=== PATIENT | female | born 1935 | race Caucasian/White ===

== ENCOUNTER → 2016-11-11 | Outpatient (CLI) | payer MEDICARE, BC ==
[2016-11-11 11:28] LABS: ANION GAP 12 (5-19); BLOOD UREA NITROGEN 40 mg/dL (7-20); CALCIUM 9.1 mg/dL (8.4-10.2); CARBON DIOXIDE 24 mmol/L (22-30); CHLORIDE 98 mmol/L (98-107); CREATININE RESULT 1.57 mg/dL (0.52-1.25); GLUCOSE 170 mg/dL (75-110); POTASSIUM 3.5 mmol/L (3.6-5.0); SODIUM 134.1 mmol/L (137-145)
== END ==
LOC: OD 10:03
PROVIDERS: ATTEND Internal Medicine Cardiovascular Disease
DX: G45.9 Transient cerebral ischemic attack, unspecified (principal)
CPT/HCPCS: 36415; 80048; 83880

== ENCOUNTER → 2017-01-18 | Outpatient (CLI) | payer MEDICARE, BC | LOC: OD 14:59 | DX: Z12.4 Encounter for screening for malignant neoplasm of cervix (principal) | CPT/HCPCS: 88142 ==

== ENCOUNTER → 2017-04-05 | Outpatient (CLI) | payer MEDICARE, BC ==
--- NOTE | 2017-04-05 14:39 | RADIOLOGY REPORT (SQ) ---
EXAM DESCRIPTION: U/S RETROPERITON (RENAL/AORTA) COMPLETED DATE/TIME: 04/05/2017 1:26 pm REASON FOR STUDY: RENAL AND PERINEPHRIC ABSCESS N15.1 RENAL AND PERINEPHRIC ABSCESS COMPARISON: None available. TECHNIQUE: Dynamic and static grayscale images acquired of the kidneys and bladder and recorded on P ACS. Additional selected color Doppler and spectral images recorded. LIMITATIONS: None. FINDINGS: RIGHT KIDNEY: Normal size, 10.5 cm. Normal echogenicity. No solid or suspicious masses. No hydronephrosis. No calcifications. LEFT KIDNEY: Normal size, 10.2 cm. Normal echogenicity. There appears to be mild cortical thinning. No solid or suspicious masses. No hydronephrosis. No calcifications. BLADDER: No masses. OTHER FINDINGS: No other significant finding. IMPRESSION: There appears to be mild cortical thinning in the left kidney. There is no evidence of a perinephric abscess. TECHNICAL DOCUMENTATION: JOB ID: [id number] [email or web address]- All Rights Reserved
== END ==
LOC: RAD 12:50
PROVIDERS: ATTEND Urology
DX: N15.1 Renal and perinephric abscess (principal)
CPT/HCPCS: 76770

== ENCOUNTER 2017-10-15 10:20 | Inpatient (IN) | payer MEDICARE, BC ==
--- NOTE | 2017-10-15 10:56 | RADIOLOGY REPORT (SQ) ---
EXAM DESCRIPTION: CT ABD/PELVIS NO ORAL OR IV COMPLETED DATE/TIME: 10/15/2017 10:43 am REASON FOR STUDY: right sided pain to the leg COMPARISON: None. TECHNIQUE: CT scan of the abdomen and pelvis performed without intravenous or oral contrast. Images reviewed with lung, soft tissue, and bone windows. Reconstructed coronal and sagittal MPR images revi ewed. All images stored on PACS. All CT scanners at this facility use dose modulation, iterative reconstruction, and/or weight based d osing when appropriate to reduce radiation dose to as low as reasonably achievable (ALARA). [facility]: Dose Right [facility]: CareDose [facility]: Dose Right [facility]: Teradose 4D [facility]: [employer]ift RADIATION DOSE: CT Rad equipment meets quality standard of care and radiation dose reduction techniq ues were employed. CTDIvol: 5.6 mGy. DLP: 291 mGy-cm.mGy. LIMITATIONS: None. FINDINGS: LOWER CHEST: No significant findings. No nodules or infiltrates. NON-CONTRASTED LIVER, SPLEEN, ADRENALS: Evaluation limited by lack of IV contrast. No identified sign ificant masses. PANCREAS: No masses. No peripancreatic inflammatory changes. GALLBLADDER: No identified stones by CT criteria. No inflammatory changes to suggest cholecystitis. RIGHT KIDNEY AND URETER: No suspicious masses. Assessment limited by lack of IV contrast. No signif icant calcifications. No hydronephrosis or hydroureter. LEFT KIDNEY AND URETER: No suspicious masses. Assessment limited by lack of IV contrast. No signifi cant calcifications. No hydronephrosis or hydroureter. AORTA AND RETROPERITONEUM: Vascular calcifications. No aneurysm. No retroperitoneal masses or adenop athy. BOWEL AND PERITONEAL CAVITY: Expected surgical change related to partial resection of the ascending c olon. Diverticulosis. No obvious masses or inflammatory changes. No free fluid. APPENDIX: Presumed to be surgically absent. PELVIS, BLADDER, AND ABDOMINAL WALL:Small fat containing supraumbilical and periumbilical hernias. N o abnormal masses. No free fluid. Bladder normal. BONES: Moderately displaced right subcapital femoral neck fracture. Mild to moderate chronic noe monet deformity of the T11 vertebral body. Degenerative change of the visualized spine most notable a t L5-S1 where there is grade 1 anterolisthesis in the setting of chronic bilateral pars defects. No additional fractures. OTHER: No other significant finding. IMPRESSION: MODERATELY DISPLACED RIGHT FEMORAL NECK FRACTURE. NO ACUTE FINDINGS IDENTIFIED WITHIN THE ABDOMEN OR PELVIS. ADDITIONAL CHRONIC CHANGES ABOVE. COMMENT: Quality ID # [id number]: Final reports with documentation of one or more dose reduction techniques (e.g., Automated exposure control, adjustment of the mA and/or kV according to patient size, use of iterative reconstruction technique) TECHNICAL DOCUMENTATION: JOB ID: [id number] [employer]- All Rights Reserved
[2017-10-15] MEDS ORDERED: HYDROCODONE/ACETAMINOPHEN 5-325 MG TABLET PO ONE (11:00)
--- NOTE | 2017-10-15 11:23 | ER Document Report ---
ED General - General Chief Complaint: Leg Pain Stated Complaint: RIGHT LEG PAIN Time Seen by Provider: 10/15/17 10:31 Mode of Arrival: Medic Information source: Patient, Relative Notes: 82-year-old female history of chronic kidney disease resents with complaints of right lower extremity pain and groin pain. Patient notes pain has been ongoing for 1 week, she denies any trauma denies any weakness or numbness admits to inability to ambulate today TRAVEL OUTSIDE OF THE [place] IN LAST 30 DAYS: No - HPI Onset: Last week Onset/Duration: Worse Quality of pain: Sharp Severity: Moderate Pain Level: 4 Associated symptoms: Body/muscle aches Exacerbated by: Movement, Walking Relieved by: Denies Similar symptoms previously: No Recently seen / treated by doctor: No - Related Data Allergies/Adverse Reactions: cephalexin monohydrate [From Keflex] Allergy (Intermediate, Verified 10/15/17 10 :38) Swelling of hands and/or feet codeine [Codeine] Allergy (Intermediate, Verified 10/15/17 10:38) VOMITING Penicillins Allergy (Intermediate, Verified 10/15/17 10:38) Swelling of hands and/or feet Home Medications: Current Home Medications Amlodipine Besylate 5 mg PO DAILY 10/15/17 [History] Cholecalciferol (Vitamin D3) [Vitamin D3 2000 unit Tablet] 2,000 unit PO DAILY 10/15/17 [History] Cyclosporine 0.05% Oph Emulsio [Restasis 0.05% Opthalmic Droperette] 1 drop OU BID 10/15/17 [History] Diphenoxylate HCl/Atropine [Diphenoxylate-Atrop 2.5-0.025] 2.5 mg PO Q6H PRN 03/27 [History] Furosemide [Lasix 40 mg Tablet] 40 mg PO BID 10/15/17 [History] Latanoprost [Xalatan 0.005% Oph Soln 2.5 ml] 1 drop OU QHS 10/15/17 [History] Levothyroxine Sodium [Synthroid 0.075 mg Tablet] 0.075 mg PO DAILY 10/15/17 [ History] Metoprolol Tartrate 25 mg PO BID 10/15/17 [History] Mycophenolate Mofetil 250 mg PO BID 10/15/17 [History] Omeprazole 20 mg PO QHS 10/15/17 [History] Potassium Chloride 10 meq PO BID 10/15/17 [History] Prednisone 5 mg PO DAILY 10/15/17 [History] Simvastatin 20 mg PO QHS 10/15/17 [History] Tamsulosin HCl 0.4 mg PO QHS 10/15/17 [History] Past Medical History - Social History Smoking Status: Never Smoker Cigarette use (# per day): No Chew tobacco use (# tins/day): No Smoking Education Provided: No Frequency of alcohol use: None Drug Abuse: None Family History: Reviewed & Not Pertinent Patient has suicidal ideation: No Patient has homicidal ideation: No - Past Medical History Cardiac Medical History: Reports: Hx Coronary Artery Disease - high chol , Hx Hypercholesterolemia, Hx Hypertension Pulmonary Medical History: Reports: Hx Bronchitis Neurological Medical History: Denies: Hx Seizures Endocrine Medical History: Reports: Hx Hypothyroidism Renal/ Medical History: Denies: Hx Peritoneal Dialysis GI Medical History: Reports: Hx Gastroesophageal Reflux Disease Musculoskeltal Medical History: Reports Hx Arthritis Past Surgical History: Denies: Hx Hysterectomy - Immunizations Hx Diphtheria, Pertussis, Tetanus Vaccination: Yes Review of Systems - Review of Systems Notes: REVIEW OF SYSTEMS: CONSTITUTIONAL : Denies fever, chills, or sweats. Denies recent illness. EENT: Denies eye, ear, throat, or mouth pain or symptoms. Denies nasal or sinus congestion or discharge. Denies throat, tongue, or mouth swelling or difficulty swallowing. CARDIOVASCULAR: Denies chest pain. Denies palpitations or racing or irregular heart beat. Denies ankle edema. RESPIRATORY: Denies cough, cold, or chest congestion. Denies shortness of breath, difficulty breathing, or wheezing. GASTROINTESTINAL: Denies abdominal pain or distention. Denies nausea, vomiting , or diarrhea. Denies blood in vomitus, stools, or per rectum. Denies black, tarry stools. Denies constipation. GENITOURINARY: Denies difficulty urinating, painful urination, burning, frequency, blood in urine, or discharge. FEMALE GENITOURINARY: Denies vaginal bleeding, heavy or abnormal periods, irregular periods. Denies vaginal discharge or odor. MUSCULOSKELETAL: Right leg pain. SKIN: Denies rash, lesions or sores. HEMATOLOGIC : Denies easy bruising or bleeding. LYMPHATIC: Denies swollen, enlarged glands. NEUROLOGICAL: Denies confusion or altered mental status. Denies passing out or loss of consciousness. Denies dizziness or lightheadedness. Denies headache. Denies weakness or paralysis or loss of use of either side. Denies problems with gait or speech. Denies sensory loss, numbness, or tingling. Denies seizures. PSYCHIATRIC: Denies anxiety or stress. Denies depression, suicidal ideation, or homicidal ideation. ALL OTHER SYSTEMS REVIEWED AND NEGATIVE. PHYSICAL EXAMINATION: GENERAL: Well-appearing, well-nourished and in no acute distress. HEAD: Atraumatic, normocephalic. EYES: Pupils equal round and reactive to light, extraocular movements intact, conjunctiva are normal. ENT: Nares patent, oropharynx clear without exudates. Moist mucous membranes. NECK: Normal range of motion, supple without lymphadenopathy LUNGS: Breath sounds clear to auscultation bilaterally and equal. No wheezes rales or rhonchi. HEART: Regular rate and rhythm without murmurs ABDOMEN: Soft, nontender, nondistended abdomen. No guarding, no rebound. No masses appreciated. Female : deferred Musculoskeletal: Left lower extremities normal right lower extremity unable to elevate has pain at the hip NEUROLOGICAL: Cranial nerves grossly intact. Normal speech, normal gait. Normal sensory, motor exams PSYCH: Normal mood, normal affect. SKIN: Warm, Dry, normal turgor, no rashes or lesions noted. Dictation was performed using [employer] voice recognition software Physical Exam - Vital signs Vitals: Temp Pulse Resp BP Pulse Ox 98.8 F 66 16 157/62 H 100 10/15/17 10:20 10/15/17 10:20 10/15/17 10:20 10/15/17 10:20 10/15/17 10:20 Course - Re-evaluation Re-evalutation: Patient was immediately sent for CT initially to rule out an aortic dissection given complaints of leg pain. Interestingly patient actually has a right femoral neck fracture which is moderately displaced, she denies any history of trauma 10/15/17 11:[address] walters and will admit to the hospitalist service 10/15/17 11:24 Spoke with Selena and will admit - Vital Signs Vital signs: Temp Pulse Resp BP Pulse Ox 97.7 F 62 18 133/48 H 96 10/15/17 15:24 10/15/17 15:24 10/15/17 15:24 10/15/17 15:24 10/15/17 15:24 - Laboratory Result Diagrams: 10/15/17 11:19 10/15/17 12:20 Laboratory results interpreted by me: 10/15/17 10/15/17 10/15/17 11:19 11:34 12:20 RBC 3.52 L Hgb 10.5 L Hct 31.5 L Seg Neutrophils % 84.7 H Lymphocytes % 8.2 L Sodium 134.4 L Carbon Dioxide 20 L BUN 99 H Creatinine 3.22 H Est GFR ( Amer) 17 L Est GFR (Non-Af Amer) 14 L Glucose 123 H AST 11 L NT-Pro-B Natriuret Pep Urine Protein 30 H Urine Blood MODERATE H Ur Leukocyte Esterase LARGE H 10/15/17 12:20 RBC Hgb Hct Seg Neutrophils % Lymphocytes % Sodium Carbon Dioxide BUN Creatinine Est GFR ( Amer) Est GFR (Non-Af Amer) Glucose AST NT-Pro-B Natriuret Pep 999 H Urine Protein Urine Blood Ur Leukocyte Esterase - Diagnostic Test Radiology reviewed: Image reviewed, Reports reviewed Discharge - Discharge Clinical Impression: CKD (chronic kidney disease) stage 4, GFR 15-29 ml/min Fracture of femoral neck, right, closed Qualifiers: Encounter type: initial encounter Qualified Code(s): S72.001A - Fracture of unspecified part of neck of right femur, initial encounter for closed fracture Condition: Stable Disposition: ADMITTED INPATIENT Admitting Provider: Hospitalist Unit Admitted: Telemetry
--- NOTE | 2017-10-15 11:26 | RADIOLOGY REPORT (SQ) ---
EXAM DESCRIPTION: CHEST SINGLE VIEW COMPLETED DATE/TIME: 10/15/2017 11:16 am REASON FOR STUDY: preop COMPARISON: None. EXAM PARAMETERS: NUMBER OF VIEWS: One view. TECHNIQUE: Single frontal radiographic view of the chest acquired. RADIATION DOSE: NA LIMITATIONS: None. FINDINGS: LUNGS AND PLEURA: No opacities, masses or pneumothorax. No pleural effusion. MEDIASTINUM AND HILAR STRUCTURES: No masses. Contour normal. HEART AND VASCULAR STRUCTURES: Heart normal in size. Normal vasculature. BONES: No acute findings. HARDWARE: None in the chest. OTHER: No other significant finding. IMPRESSION: NO ACUTE RADIOGRAPHIC FINDING IN THE CHEST. TECHNICAL DOCUMENTATION: JOB ID: [id number] [employer]- All Rights Reserved
[2017-10-15] MEDS ORDERED: MORPHINE SULFATE 10 MG/ML INJ IV ONE (11:35)
[2017-10-15 11:42] LABS: ABSOLUTE LYMPHOCYTES (AUTO) 0.7 10^3/uL (0.5-4.7); ABSOLUTE MONOCYTES (AUTO) 0.6 10^3/uL (0.1-1.4); ABSOLUTE NEUT (AUTO) 7.7 10^3/uL (1.7-8.2); BASOPHILS % (AUTO) 0.3 % (0-2); EOSINOPHILS % (AUTO) 0.3 % (0-6); HEMATOCRIT 31.5 % (36.0-47.0); HEMOGLOBIN 10.5 g/dL (12.0-15.5); LYMPHOCYTES % (AUTO) 8.2 % (13-45); MEAN CORPUSCULAR HEMOGLOBIN 29.9 pg (27.0-33.4); MEAN CORPUSCULAR HGB CONC 33.5 g/dL (32.0-36.0); MEAN CORPUSCULAR VOLUME 89 fl (80-97); MONOCYTES % (AUTO) 6.5 % (3-13); RED BLOOD COUNT 3.52 10^6/uL (3.72-5.28); RED CELL DISTRIBUTION WIDTH 13.5 % (11.5-14.0); SEGMENTED NEUTROPHILS % (AUTO) 84.7 % (42-78); TOTAL CELLS COUNTED % (AUTO) 100 %; WHITE BLOOD COUNT 9.1 10^3/uL (4.0-10.5)
--- NOTE | 2017-10-15 11:53 | EKG REPORT ---
SEVERITY:- NORMAL ECG - SINUS RHYTHM : Confirmed by: Yousuf Ann 15-Oct-2017 11:52:59
[2017-10-15 11:57] LABS: APPEARANCE,URINE CLOUDY; BILIRUBIN,URINE NEGATIVE (NEGATIVE); COLOR,URINE YELLOW; GLUCOSE, URINE NEGATIVE (NEGATIVE); KETONES,URINE NEGATIVE (NEGATIVE); LEUKOCYTE ESTERASE,URINE LARGE (NEGATIVE); NITRITE,URINE NEGATIVE (NEGATIVE); PROTEIN,URINE 30 mg/dL (NEGATIVE); URINE SPECIFIC GRAVITY 1.006; UROBILINOGEN,URINE NEGATIVE mg/dL (<2.0)
[2017-10-15 12:08] LABS: PLATELET COUNT 228 10^3/uL (150-450)
[2017-10-15] MEDS ORDERED: ONDANSETRON HCL INJ/PF 4 MG/2 ML SDV IV PRN (12:43)
[2017-10-15] MEDS ORDERED: MAGNESIUM HYDROXIDE SUSP 30 ML UDCUP PO PRN (12:43)
[2017-10-15] MEDS ORDERED: NORMAL SALINE 1000 ML 1,000 ML IV PRN (12:43)
[2017-10-15] MEDS ORDERED: IPRATROPIUM/ALBUTEROL 0.5-2.5 MG/3 ML AMPUL NEB PRN (12:43)
[2017-10-15] MEDS ORDERED: MAG HYDROX/AL HYDROX/SIMETH SUSP 30 ML UDCUP PO PRN (12:43)
[2017-10-15 12:48] LABS: ALANINE AMINOTRANSFERASE 29 U/L (9-52); ALBUMIN 3.7 g/dL (3.5-5.0); ALKALINE PHOSPHATASE 76 U/L (38-126); ANION GAP 13 (5-19); ASPARTATE AMINO TRANSFERASE 11 U/L (14-36); BILIRUBIN,DIRECT 0.4 mg/dL (0.0-0.4); BILIRUBIN,TOTAL 0.5 mg/dL (0.2-1.3); BLOOD UREA NITROGEN 99 mg/dL (7-20); CALCIUM 9.5 mg/dL (8.4-10.2); CARBON DIOXIDE 20 mmol/L (22-30); CHLORIDE 101 mmol/L (98-107); GLUCOSE 123 mg/dL (75-110); POTASSIUM 4.3 mmol/L (3.6-5.0); SODIUM 134.4 mmol/L (137-145); TOTAL PROTEIN 6.6 g/dL (6.3-8.2)
[2017-10-15] MEDS ORDERED: NORMAL SALINE 1000 ML 500 ML IV ONE (13:15)
[2017-10-15] MEDS: OXYCODONE HCL IR 5 MG TABLET PO PRN ×2 (14:08→22:18)
[2017-10-15] MEDS: HEPARIN SOD (PORCINE) 5,000 UNIT/ML 1 ML SYRINGE SUBCUT SCH ×2 (14:10→21:20)
--- NOTE | 2017-10-15 15:34 | PDOC H&P ---
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 She denies injury or fall. She states that the pain began proximally 5 days ago after visiting her daughter and climbing flights of stairs which she is not accustomed to doing. The pain gradually worsened until she became bedbound yesterday when she was finally agreeable to be evaluated in the emergency department. Evaluation in the emergency department revealed on chronic renal failure, UTI, and a right femoral neck fracture. She is referred to the hospital service for admission. Past Medical History Cardiac Medical History: Reports: Congestive Heart Failure, Coronary Artery Disease - high chol , Hyperlipidema, Hypertension, Other Pulmonary Medical History: Reports: Bronchitis EENT Medical History: Reports: Other - Bilateral lens transplants Neurological Medical History: Denies: Hemorrhagic CVA, Ischemic CVA, Migraine, Seizures Endocrine Medical History: Reports: Hypothyroidism Renal/ Medical History: Reports: Chronic Kidney Disease Malignancy Medical History: Reports: None GI Medical History: Reports: Gastroesophageal Reflux Disease Musculoskeltal Medical History: Reports: Arthritis Psychiatric Medical History: Reports: None Hematology: Reports: Anemia Past Surgical History Past Surgical History: Denies: Hysterectomy Social History Information Source: Patient, Relative Lives with: Alone Smoking Status: Never Smoker Frequency of Alcohol Use: None Hx Recreational Drug Use: No Drugs: None Hx Prescription Drug Abuse: No - Advance Directive Resuscitation Status: Full Code Surrogate healthcare decision maker:: Patient's son, Gerald Thompson Family History Family History: Reviewed & Not Pertinent Parental Family History Reviewed: Yes Children Family History Reviewed: Yes Sibling(s) Family History Reviewed.: Yes Medication/Allergy Home Medications: Amlodipine Besylate 5 mg PO DAILY 10/15/17 Cholecalciferol (Vitamin D3) [Vitamin D3 2000 unit Tablet] 2,000 unit PO DAILY 10/15/17 Cyclosporine 0.05% Oph Emulsio [Restasis 0.05% Opthalmic Droperette] 1 drop OU BID 10/15/17 Diphenoxylate HCl/Atropine [Diphenoxylate-Atrop 2.5-0.025] 2.5 mg PO Q6H PRN 03/27 Furosemide [Lasix 40 mg Tablet] 40 mg PO BID 10/15/17 Latanoprost [Xalatan 0.005% Oph Soln 2.5 ml] 1 drop OU QHS 10/15/17 Levothyroxine Sodium [Synthroid 0.075 mg Tablet] 0.075 mg PO DAILY 10/15/17 Metoprolol Tartrate 25 mg PO BID 10/15/17 Mycophenolate Mofetil 250 mg PO BID 10/15/17 Omeprazole 20 mg PO QHS 10/15/17 Potassium Chloride 10 meq PO BID 10/15/17 Prednisone 5 mg PO DAILY 10/15/17 Simvastatin 20 mg PO QHS 10/15/17 Tamsulosin HCl 0.4 mg PO QHS 10/15/17 Allergies/Adverse Reactions: cephalexin monohydrate [From Keflex] Allergy (Intermediate, Verified 10/15/17 10 :38) Swelling of hands and/or feet codeine [Codeine] Allergy (Intermediate, Verified 10/15/17 10:38) VOMITING Penicillins Allergy (Intermediate, Verified 10/15/17 10:38) Swelling of hands and/or feet Review of Systems Constitutional: PRESENT: anorexia. ABSENT: chills, fever(s), headache(s), weight gain, weight loss Eyes: ABSENT: visual disturbances Ears: ABSENT: hearing changes Nose, Mouth, and Throat: ABSENT: headache(s) Cardiovascular: ABSENT: chest pain, dyspnea on exertion, edema, orthropnea, palpitations Respiratory: ABSENT: cough, hemoptysis Gastrointestinal: ABSENT: abdominal pain, constipation, diarrhea, hematemesis, hematochezia, nausea, vomiting Genitourinary: ABSENT: dysuria, hematuria Musculoskeletal: PRESENT: as per HPI. ABSENT: joint swelling Integumentary: ABSENT: rash, wounds Neurological: ABSENT: abnormal gait, abnormal speech, confusion, dizziness, focal weakness, syncope Psychiatric: ABSENT: anxiety, depression, homidical ideation, suicidal ideation Endocrine: ABSENT: cold intolerance, heat intolerance, polydipsia, polyuria Hematologic/Lymphatic: ABSENT: easy bleeding, easy bruising Physical Exam Vital Signs: Temp Pulse Resp BP Pulse Ox 98.8 F 66 18 160/78 H 100 10/15/17 10:20 10/15/17 10:20 10/15/17 14:00 10/15/17 14:28 10/15/17 14:00 General appearance: PRESENT: no acute distress, cooperative, hard of hearing, thin, well-developed, well-nourished Head exam: PRESENT: atraumatic, normocephalic Eye exam: PRESENT: conjunctiva pink, EOMI, PERRLA. ABSENT: scleral icterus Ear exam: PRESENT: normal external ear exam Mouth exam: PRESENT: moist, tongue midline Neck exam: ABSENT: carotid bruit, JVD, lymphadenopathy, thyromegaly Respiratory exam: PRESENT: clear to auscultation fer, symmetrical, unlabored. ABSENT: rales, rhonchi, wheezes Cardiovascular exam: PRESENT: RRR, +S1, +S2, systolic murmur. ABSENT: diastolic murmur, rubs Pulses: PRESENT: normal dorsalis pedis pul Vascular exam: PRESENT: normal capillary refill GI/Abdominal exam: PRESENT: normal bowel sounds, soft. ABSENT: distended, guarding, mass, organolmegaly, rebound, tenderness Rectal exam: PRESENT: deferred Extremities exam: ABSENT: calf tenderness, clubbing, full ROM - Secondary to pain, pedal edema Musculoskeletal exam: ABSENT: ambulatory Neurological exam: PRESENT: alert, awake, oriented to person, oriented to place , oriented to time, oriented to situation, CN II-XII grossly intact. ABSENT: motor sensory deficit Psychiatric exam: PRESENT: appropriate affect, normal mood. ABSENT: homicidal ideation, suicidal ideation Skin exam: PRESENT: dry, intact, warm. ABSENT: cyanosis, rash Results Impressions: Abdomen/Pelvis CT 10/15/17 10:32 IMPRESSION: MODERATELY DISPLACED RIGHT FEMORAL NECK FRACTURE. NO ACUTE FINDINGS IDENTIFIED WITHIN THE ABDOMEN OR PELVIS. ADDITIONAL CHRONIC CHANGES ABOVE. Chest X-Ray 10/15/17 11:00 IMPRESSION: NO ACUTE RADIOGRAPHIC FINDING IN THE CHEST. Assessment & Plan - Diagnosis (1) Fracture of femoral neck, right, closed Qualifiers: Encounter type: initial encounter Qualified Code(s): S72.001A - Fracture of unspecified part of neck of right femur, initial encounter for closed fracture Plan: Nontraumatic fracture of the right femoral neck. Orthopedics has been consulted; appreciate their interventions and recommendations. Anesthesia has requested cardiac clearance, therefore, cardiology has been consulted. To remain nonweightbearing. Oxycodone as needed for pain, Zofran as needed for nausea and vomiting. We will allow the patient to eat today and become n.p.o. after midnight in anticipation of possible surgical intervention in the morning. (2) Urinary tract infection Qualifiers: Hematuria presence: with hematuria Is this a current diagnosis for this admission?: Yes Plan: Acute urinary tract infection present on arrival. We will obtain blood and urine cultures. Given the patient's antibiotic allergies and renal function; will place the patient on ciprofloxacin. We will adjust antibiotics as cultures result. (3) Acute on chronic renal failure Qualifiers: Chronic kidney disease stage: stage 4 (severe) Is this a current diagnosis for this admission?: Yes Plan: Likely prerenal in the nature as the patient appears to be dry. Complicated by an acute urinary tract infection. The patient's daughter is able to log onto the patient portal and shows me that her creatinine as of 09/25/17 was 2.55. We will manage infection as above. We will provide gentle IV fluid resuscitation given the patient's CHF. Avoid nephrotoxic medications. We will monitor with strict I&Os and daily chemistries. (4) Anemia Qualifiers: Anemia type: due to chronic kidney disease Chronic kidney disease stage: stage 4 (severe) Qualified Code(s): N18.4 - Chronic kidney disease, stage 4 ( severe); D63.1 - Anemia in chronic kidney disease; D63.1 - Anemia in chronic kidney disease Is this a current diagnosis for this admission?: Yes Plan: The patient's baseline is a hemoglobin of 10. She is currently at her baseline. Will monitor closely and anticipate a drop in the hemoglobin secondary to hemodilution and following Orthopedic intervention. Will transfuse for Hgb less than 8. (5) Hypertension Plan: Continue the patient's home medications. Hold Lasix given current renal function and volume status. (6) GERD (gastroesophageal reflux disease) Is this a current diagnosis for this admission?: Yes Plan: Continue PPI. (7) Hypothyroidism Plan: Continue patient's home dose of synthroid. (8) CKD (chronic kidney disease) stage 4, GFR 15-29 ml/min Is this a current diagnosis for this admission?: Yes Plan: Plan as above. (9) CHF (congestive heart failure) Qualifiers: Congestive heart failure type: unspecified Congestive heart failure chronicity: chronic Qualified Code(s): I50.9 - Heart failure, unspecified Is this a current diagnosis for this admission?: Yes Plan: Will continue patient's home medications. Pro BNP 999 Pt appears to be volume depleted. Will provide gentle IV hydration and monitor fluid volume status closely. - Time Time Spent: 50 to 70 Minutes Medications reviewed and adjusted accordingly: Yes - Inpatient Certification Based on my medical assessment, after consideration of the patient's comorbidities, presenting symptoms, or acuity I expect that the services needed warrant INPATIENT care.: Yes I certify that my determination is in accordance with my understanding of Medicare's requirements for reasonable and necessary INPATIENT services [42 CFR 412.3e].: Yes Medical Necessity: Need for Surgery
[2017-10-15] MEDS ORDERED: RINGERS SOLUTION,LACTATED 1,000 ML IV PRN (17:54)
[2017-10-15] MEDS: FAMOTIDINE 20 MG TABLET PO SCH (21:20)
[2017-10-15] MEDS: METOPROLOL TARTRATE 25 MG TABLET PO SCH (21:20)
[2017-10-15] MEDS: CIPROFLOXACIN 400 MG/D5W RTU 400 MG/200 ML RTUPB IV SCH (21:21)
[2017-10-15] MEDS: CYCLOSPORINE 0.05% OPH EMULSIO 0.4 ML DROPERETTE OU SCH (21:43)
[2017-10-15] MEDS: LATANOPROST 0.005% OPH SOLN 2.5 ML OU SCH (21:43)
[2017-10-15] MEDS ORDERED: CIPROFLOXACIN 400 MG/D5W RTU 400 MG/200 ML RTUPB IV SCH (22:00)
--- NOTE | 2017-10-15 22:14 | PDOC PROGRESS REPORT ---
Subjective Progress Note for:: 10/15/17 Subjective:: Preoperative cardiac evaluation for right hip fracture surgery. Note formal consult will be dictated tomorrow, after discussions with her prior rn production Dr. Reynolds. 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 She also has a history of vasculitis, and the patient's family and the patient are not sure as to what kind of vasculitis it is. 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 Although it is mentioned in the history that the patient's has a history of coronary artery disease, the patient and family deny any knowledge of being told that the patient has a history of coronary artery disease or [place]. She does not have any angina. Her EKG was sinus rhythm, within normal limits. She about 3 years ago had a history of CHF, which has not recurred. She has no pulmonary problems. No history of diabetes mellitus. And states she has hypothyroidism. She and her family deny any history of angina recurrence of congestive heart failure symptoms palpitations syncope. She had leg edema when she had the diagnosis of vasculitis but none now. The patient and the family state that the vasculitis has been cured, but her sed rate and CRP are significantly elevated, more than the usual seen in the femoral fracture. From cardiac standpoint she would be an acceptable risk. But due to the uncertainty of the details of the patient's coronary artery disease, would get serial EKGs and cardiac enzymes, and monitor patient's cardiac rhythm on telemetry. FORMAL CONSULT TO BE DICTATED TOMORROW, AFTER I CONTACT DR. REYNOLDS,, AND HER BACK PAD INSPECTOR. Discussed with the attending physician of the patient this admission, Dr. ROBERTS , and the anesthesiologist. Although she is an acceptable risk I have discussed with the patient and the family that there is always a chance of an [place] , CHF, arrhythmia, or sudden . But I have also assured them that the patient would be closely followed perioperatively. Reason For Visit: RT HIP FRACTURE Physical Exam Vital Signs: Temp Pulse Resp BP Pulse Ox 98.1 F 68 19 145/47 H 100 10/15/17 19:51 10/15/17 19:51 10/15/17 19:51 10/15/17 19:51 10/15/17 19:51 Results Laboratory Results: 10/15/17 20:15 C-Reactive Protein 59.4 H Impressions: Abdomen/Pelvis CT 10/15/17 10:32 IMPRESSION: MODERATELY DISPLACED RIGHT FEMORAL NECK FRACTURE. NO ACUTE FINDINGS IDENTIFIED WITHIN THE ABDOMEN OR PELVIS. ADDITIONAL CHRONIC CHANGES ABOVE. Chest X-Ray 10/15/17 11:00 IMPRESSION: NO ACUTE RADIOGRAPHIC FINDING IN THE CHEST.
[2017-10-15] MEDS: ACETAMINOPHEN 325 MG TABLET PO PRN (22:18)
[2017-10-16] MEDS: HEPARIN SOD (PORCINE) 5,000 UNIT/ML 1 ML SYRINGE SUBCUT SCH ×3 (05:27→22:22)
[2017-10-16 06:17] LABS: HEMATOCRIT 25.9 % (36.0-47.0); HEMOGLOBIN 8.7 g/dL (12.0-15.5); MEAN CORPUSCULAR HGB CONC 33.5 g/dL (32.0-36.0); MEAN CORPUSCULAR VOLUME 90 fl (80-97); RED CELL DISTRIBUTION WIDTH 13.3 % (11.5-14.0); WHITE BLOOD COUNT 6.3 10^3/uL (4.0-10.5)
[2017-10-16] MEDS: OXYCODONE HCL IR 5 MG TABLET PO PRN (06:39)
[2017-10-16 06:42] LABS: ANION GAP 9 (5-19); BLOOD UREA NITROGEN 89 mg/dL (7-20); CALCIUM 9.3 mg/dL (8.4-10.2); CARBON DIOXIDE 22 mmol/L (22-30); CHLORIDE 102 mmol/L (98-107); GLUCOSE 94 mg/dL (75-110); POTASSIUM 4.7 mmol/L (3.6-5.0); SODIUM 133.2 mmol/L (137-145)
[2017-10-16] MEDS: ACETAMINOPHEN 325 MG TABLET PO PRN (06:42)
[2017-10-16 06:49] LABS: PLATELET COUNT 190 10^3/uL (150-450)
[2017-10-16] MEDS ORDERED: BUPIVACAINE INJ/PF LIPOSOME/PF 266 MG/20 ML SDV ONE (07:59)
[2017-10-16] MEDS ORDERED: SUCCINYLCHOLINE CHLORIDE INJ 200 MG/10 ML VIAL ONE (08:00)
[2017-10-16] MEDS ORDERED: ONDANSETRON HCL INJ/PF 4 MG/2 ML SDV ONE (08:00)
[2017-10-16] MEDS ORDERED: LIDOCAINE 2% INJ-PF (20 MG/ML) 2 ML AMPUL ONE (08:00)
[2017-10-16] MEDS ORDERED: HYDROCORTISONE SOD SUCCINATE INJ/PF 100 MG/2 ML SDV IV ONE (08:30)
[2017-10-16] MEDS ORDERED: FENTANYL CITRATE INJ/PF 100 MCG/2 ML AMPUL ONE ×2 (08:58)
[2017-10-16] MEDS ORDERED: MIDAZOLAM 2 MG/2 ML INJ ONE (08:58)
[2017-10-16] MEDS ORDERED: PROPOFOL INJ 200 MG/20 ML VIAL IV ONE (08:59)
[2017-10-16] MEDS ORDERED: HYDROMORPHONE HCL INJ/PF 2 MG/ML AMPULE ONE (08:59)
[2017-10-16] MEDS ORDERED: ACETAMINOPHEN 100 ML IV ONE (08:59)
[2017-10-16] MEDS ORDERED: KETAMINE HCL INJ 500 MG/10 ML VIAL ONE (09:00)
[2017-10-16] MEDS ORDERED: EPHEDRINE SULFATE INJ 50 MG/1 ML AMPULE ONE (09:42)
[2017-10-16] MEDS ORDERED: METHYLPREDNISOLONE INJ 125 MG/2 ML SDV ONE (09:43)
--- NOTE | 2017-10-16 09:58 | PDOC CONSULTATION ---
Consultation Consult Date: 10/16/17 Consult reason:: Right hip fracture History of Present Illness Admission Date/PCP: 10/15/17 13:12 Patient complains of: Right hip pain and inability to weight-bear History of Present Illness: 82-year-old female who for the last week was complaining of increasing right hip pain with no falls. Eventually patient was unable to weight-bear and was brought to the hospital where she had been x-rayed and showed to have a displaced right femoral neck fracture. Is any previous injuries or falls. Denies any other extremity pain. Pain is 5 out of 5 pain with ambulation and weightbearing. Pain with range of motion as well. Describes the pain as sharp and in the groin and anterior hip. Denies any numbness tingling or paresthesias Past Medical History Cardiac Medical History: Reports: Congestive Heart Failure, Coronary Artery Disease - high chol , Hyperlipidema, Hypertension, Other Pulmonary Medical History: Reports: Bronchitis EENT Medical History: Reports: Other - Bilateral lens transplants Neurological Medical History: Denies: Hemorrhagic CVA, Ischemic CVA, Migraine, Seizures Endocrine Medical History: Reports: Hypothyroidism Renal/ Medical History: Reports: Chronic Kidney Disease Malignancy Medical History: Reports: None GI Medical History: Reports: Gastroesophageal Reflux Disease Musculoskeltal Medical History: Reports: Arthritis Psychiatric Medical History: Reports: None Hematology: Reports: Anemia, Other - Bilateral lens transplants Past Surgical History Past Surgical History: Denies: Hysterectomy Social History Lives with: Alone Smoking Status: Never Smoker Frequency of Alcohol Use: None Hx Recreational Drug Use: No Drugs: None Hx Prescription Drug Abuse: No - Advance Directive Resuscitation Status: Full Code Family History Family History: Reviewed & Not Pertinent Parental Family History Reviewed: No Children Family History Reviewed: No Sibling(s) Family History Reviewed.: No Medication/Allergy Home Medications: Amlodipine Besylate 5 mg PO DAILY 10/15/17 Cholecalciferol (Vitamin D3) [Vitamin D3 2000 unit Tablet] 2,000 unit PO DAILY 10/15/17 Cyclosporine 0.05% Oph Emulsio [Restasis 0.05% Opthalmic Droperette] 1 drop OU BID 10/15/17 Diphenoxylate HCl/Atropine [Diphenoxylate-Atrop 2.5-0.025] 2.5 mg PO Q6H PRN 03/27 Furosemide [Lasix 40 mg Tablet] 40 mg PO BID 10/15/17 Latanoprost [Xalatan 0.005% Oph Soln 2.5 ml] 1 drop OU QHS 10/15/17 Levothyroxine Sodium [Synthroid 0.075 mg Tablet] 0.075 mg PO DAILY 10/15/17 Metoprolol Tartrate 25 mg PO BID 10/15/17 Mycophenolate Mofetil 250 mg PO BID 10/15/17 Omeprazole 20 mg PO QHS 10/15/17 Potassium Chloride 10 meq PO BID 10/15/17 Prednisone 5 mg PO DAILY 10/15/17 Simvastatin 20 mg PO QHS 10/15/17 Tamsulosin HCl 0.4 mg PO QHS 10/15/17 Allergies/Adverse Reactions: cephalexin monohydrate [From Keflex] Allergy (Intermediate, Verified 10/15/17 10 :38) Swelling of hands and/or feet codeine [Codeine] Allergy (Intermediate, Verified 10/15/17 10:38) VOMITING Penicillins Allergy (Intermediate, Verified 10/15/17 10:38) Swelling of hands and/or feet Review of Systems All systems: reviewed and no additional remarkable complaints except as stated Physical Exam Vital Signs: Temp Pulse Resp BP Pulse Ox 36.7 C 58 L 12 145/48 H 97 10/16/17 07:35 10/16/17 07:35 10/16/17 07:35 10/16/17 07:35 10/16/17 07:35 Intake & Output 10/15/17 10/16/17 10/17/17 06:59 06:59 06:59 Intake Total 1902 Output Total 975 Balance 927 Weight 58.1 kg General appearance: PRESENT: no acute distress Eye exam: PRESENT: EOMI, PERRLA. ABSENT: conjunctival injection, nystagmus, periorbital swelling Neck exam: ABSENT: lymphadenopathy, thyromegaly, tracheal deviation Respiratory exam: PRESENT: symmetrical, unlabored. ABSENT: chest wall tenderness, tachypnea Pulses: PRESENT: normal dorsalis pedis pul Vascular exam: PRESENT: normal capillary refill GI/Abdominal exam: PRESENT: soft. ABSENT: distended, organolmegaly, tenderness Neurological exam: PRESENT: alert, awake, oriented to person, oriented to place , oriented to time, oriented to situation Psychiatric exam: PRESENT: appropriate affect, normal mood Skin exam: PRESENT: intact. ABSENT: erythema, rash Adult Front & Back Image: 1 - Short and externally rotated right lower extremity. Tender palpation of the anterior groin. Significant pain with attempted log roll or flexion of the hip. Good sensation to light touch distally with good capillary refill. Able to flex and extend the ankle and digits. Results Laboratory Results: 10/16/17 05:48 10/16/17 05:48 10/15/17 10/16/17 10/16/17 20:15 05:48 05:48 WBC 6.3 RBC 2.90 L Hgb 8.7 L Hct 25.9 L MCV 90 MCH 30.0 MCHC 33.5 RDW 13.3 Plt Count 190 Sodium 133.2 L Potassium 4.7 Chloride 102 Carbon Dioxide 22 Anion Gap 9 BUN 89 H Creatinine 3.26 H Est GFR ( Amer) 16 L Est GFR (Non-Af Amer) 14 L Glucose 94 Calcium 9.3 C-Reactive Protein 59.4 H Impressions: Abdomen/Pelvis CT 10/15/17 10:32 IMPRESSION: MODERATELY DISPLACED RIGHT FEMORAL NECK FRACTURE. NO ACUTE FINDINGS IDENTIFIED WITHIN THE ABDOMEN OR PELVIS. ADDITIONAL CHRONIC CHANGES ABOVE. Chest X-Ray 10/15/17 11:00 IMPRESSION: NO ACUTE RADIOGRAPHIC FINDING IN THE CHEST. Status: Image reviewed by me Assessment & Plan - Diagnosis (1) Fracture of femoral neck, right, closed Qualifiers: Encounter type: initial encounter Qualified Code(s): S72.001A - Fracture of unspecified part of neck of right femur, initial encounter for closed fracture Is this a current diagnosis for this admission?: Yes Plan: 2-year-old female with displaced right femoral neck fracture. After discussing the risk and benefits of surgery and patient agreed and consented for right hip hemiarthroplasty. Due to pain control and bedrest. Soto catheter. Patient seen by cardiology and cleared and stratified risk. We will proceed with right hip hemiarthroplasty on 10/16/2017.
[2017-10-16] MEDS ORDERED: ENOXAPARIN SODIUM INJ 30 MG/0.3 ML DISP.SYRIN SUBCUT SCH (10:00)
[2017-10-16] MEDS ORDERED: CLINDAMYCIN PHOSPHATE INJ 300 MG/2 ML SDV ONE (10:34)
[2017-10-16] MEDS: CYCLOSPORINE 0.05% OPH EMULSIO 0.4 ML DROPERETTE OU SCH ×2 (12:14→22:22)
[2017-10-16] MEDS: DOCUSATE SODIUM 100 MG CAPSULE PO SCH (12:14)
[2017-10-16] MEDS: LEVOTHYROXINE SODIUM 0.075 MG TABLET PO SCH (12:14)
[2017-10-16] MEDS: PREDNISONE 5 MG TABLET PO SCH (12:14)
[2017-10-16] MEDS: FAMOTIDINE 20 MG TABLET PO SCH ×2 (12:14→22:21)
[2017-10-16] MEDS: METOPROLOL TARTRATE 25 MG TABLET PO SCH ×2 (12:14→22:31)
[2017-10-16] MEDS: AMLODIPINE BESYLATE 5 MG TABLET PO SCH (12:14)
[2017-10-16] MEDS ORDERED: MORPHINE SULFATE 10 MG/ML INJ ONE (12:24)
[2017-10-16] MEDS: LATANOPROST 0.005% OPH SOLN 2.5 ML OU SCH (22:20)
[2017-10-16] MEDS: CIPROFLOXACIN 400 MG/D5W RTU 400 MG/200 ML RTUPB IV SCH (22:21)
[2017-10-16] MEDS ORDERED: OXYCODONE HCL IR 5 MG TABLET PO PRN ×2 (23:16→23:17)
--- NOTE | 2017-10-16 23:48 | PROGRESS NOTE E ---
Progress Note NAME: JAMIN JEAN-BAPTISTE : 1935 AGE: 82Y DATE: 10/16/2017 ROOM: 433 SUBJECTIVE: Note that the patient was seen today briefly after her surgery in the postsurgical unit and also in her room. After lengthy discussions with the patient's daughter she indeed has no history of coronary artery disease. 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 The daughter has given the phone number for primary care physician, her senior patient account representative, and her embedded software architect. We will try to contact them in the morning. In the meantime post surgery at present she is awakened from anesthesia. She denies any chest pain or discomfort. There is no palpitation. There is no PND, orthopnea. She feels much better. There are no symptoms of congestive heart failure. There is no arrhythmia seen. There are no palpitations. There is no TIA or CVA. OBJECTIVE: GENERAL: On examination the patient is well-built and well-nourished in no acute distress. VITAL SIGNS: Her pulse is 64 beats per minute, blood pressure is 119/51, respirations are 14 per minute, O2 saturations are 93% on room air. She is afebrile with a temperature of 97.5 degrees Fahrenheit. HEENT: Head is atraumatic, normocephalic. Eyes: Pupils are equal, round and regular, reactive to light and accommodation. Extraocular movements are normal. There is no conjunctival pallor. There is no scleral icterus. ENT is negative. NECK: Supple. There is no JVD. There is no lymphadenopathy. There is no goiter. Carotids are equal. There is no bruit. Trachea is central. LUNGS: Clear to auscultation and percussion. CHEST: There is no chest wall tenderness. HEART: S1, S2 is heard. There is no S3 gallop. There is no S4 gallop. There is a systolic murmur in the left sternal border and the apex with no significant radiation. There is no rub. ABDOMEN: Soft, nontender. There is no hepatosplenomegaly. Bowel sounds are well-heard. EXTREMITIES: Pedal pulses are slightly diminished. Femorals are slightly diminished. The dressing in the right groin/hip area is clean and dry. There is no vascular compromise to either leg and there is no cyanosis or clubbing. There is no pedal edema. There is no calf tenderness. CENTRAL NERVOUS SYSTEM: The patient is conscious, awake, alert and oriented x3 with no focal deficits. PSYCHIATRIC: The patient's judgment and insight are normal. Her affect is normal. LABORATORY DATA: Note that the patient's BUN is 89, creatinine is 3.26, GFR is 14 mL/min which is stage 4 chronic kidney disease. Sodium is 133, potassium 4.7, chloride is 102, CO2 is 22. The patient's blood sugar is 94. The patient's hemoglobin is 8.7, hematocrit is 25.9, and platelet count is 190,000. IMPRESSION: 1. STATUS POST RIGHT FEMORAL NECK FRACTURE WHICH APPEARS TO BE SPONTANEOUS, MOST LIKELY SECONDARY TO THE PATIENT'S AGE, *------*, AND SEX. 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 NOTE THAT THE PATIENT HAS HAD SURGERY, HENCE, FAIRLY STABLE IN A STABLE CONDITION. 2. HYPERTENSION, IT IS WELL-CONTROLLED. 3. HYPOTHYROIDISM. 4. CHRONIC KIDNEY DISEASE STAGE 5, SECONDARY TO TAMRA'S GRANULOMATOSIS. 5. TAMRA'S GRANULOMATOSIS. RECOMMENDATION: Continue current treatment, would be careful with the patient's IV. We will continue her current blood pressure medication and thyroid replacement. Continue pain medication. Note that the patient is on heparin to prevent DVT/PE as a prophylaxis. We will discuss with the patient's physician, that is, the outpatient primary care, her embedded software architect, and senior patient account representative and see if they want to increase the patient's prednisone to higher level doses. We will also discuss with Dr. Holt to make sure that this would not too much impede the healing process of the patient's surgical site. Note we will get an EKG in the morning and we will also get a troponin I and also get thyroid function test and also SMA-7 and magnesium. Also get a CBC without differential. TIME SPENT: Note 30 minutes spent on this patient with more than 50% of the time spent on direct patient care. Discussed her case in totality with the patient's daughter and other members of the family. The daughter seems knowledgeable about the patient's history. Meanwhile I had spoken to Dr. Quinn yesterday and he looked up his office records *------* and told me that he last he saw her was 2015 and that time he treated her for hypertension, and by his office notes and his examination of her at that time, she had no coronary artery disease. But, some of the notes dated in 2014 state that the patient has a history of coronary artery disease, which is even prior to Dr. Quinn having seen her last and Dr. Quinn would have done cardiac workup if he indeed thought that the patient had coronary artery disease. Hence, that must be an accidental carryover. I have explained to the family that this is not a missed diagnosis, it is only a past medical history and the patient has not been treated for coronary artery disease, she was treated for conditions. Note the medications are reviewed and labs ordered. More than 50% of the time spent on direct patient care. Medical decision making is of high complexity especially in view of the confusion about the presence or absence of coronary artery disease, but I will recheck with the patient's outpatient physicians and make sure she does not have. Also the doctor tells me that Dr. Shine of [facility] is one of her heart specialists. I will get in touch with him also. CODE STATUS: Note that the patient is a full code. Her son is the surrogate healthcare decision maker. DICTATING PHYSICIAN: SHERIN CANTU M.D. [id number] TIAGO#: [id number] ID: [id number] JOB#: [id number] ACCT: [id number] cc: >
[2017-10-17] MEDS: METOPROLOL TARTRATE 25 MG TABLET PO SCH ×3 (01:16→21:34)
[2017-10-17] MEDS ORDERED: CLINDAMYCIN 600 MG/D5W RTU 600 MG/50 ML RTUPB IV ONE (03:00)
[2017-10-17] MEDS ORDERED: RINGERS SOLUTION,LACTATED 1,000 ML IV PRN (05:25)
[2017-10-17] MEDS: HEPARIN SOD (PORCINE) 5,000 UNIT/ML 1 ML SYRINGE SUBCUT SCH (05:44)
[2017-10-17 06:49] LABS: ABSOLUTE LYMPHOCYTES (AUTO) 0.6 10^3/uL (0.5-4.7); ABSOLUTE MONOCYTES (AUTO) 0.5 10^3/uL (0.1-1.4); ABSOLUTE NEUT (AUTO) 8.9 10^3/uL (1.7-8.2); HEMATOCRIT 25.8 % (36.0-47.0); HEMOGLOBIN 8.8 g/dL (12.0-15.5); MEAN CORPUSCULAR HEMOGLOBIN 30.6 pg (27.0-33.4); MEAN CORPUSCULAR HGB CONC 34.2 g/dL (32.0-36.0); MEAN CORPUSCULAR VOLUME 89 fl (80-97); MONOCYTES % (AUTO) 4.9 % (3-13); RED BLOOD COUNT 2.88 10^6/uL (3.72-5.28); RED CELL DISTRIBUTION WIDTH 13.3 % (11.5-14.0); SEGMENTED NEUTROPHILS % (AUTO) 89.1 % (42-78); TOTAL CELLS COUNTED % (AUTO) 100 %; WHITE BLOOD COUNT 9.9 10^3/uL (4.0-10.5)
[2017-10-17 07:06] LABS: ANION GAP 12 (5-19); BLOOD UREA NITROGEN 87 mg/dL (7-20); CALCIUM 8.5 mg/dL (8.4-10.2); CARBON DIOXIDE 16 mmol/L (22-30); CHLORIDE 104 mmol/L (98-107); GLUCOSE 117 mg/dL (75-110); POTASSIUM 4.5 mmol/L (3.6-5.0); SODIUM 131.5 mmol/L (137-145)
[2017-10-17 07:20] LABS: FREE T3 2.1 pg/mL (2.77-5.27); FREE T4 (FREE THYROXINE) 1.36 ng/dL (0.78-2.19)
[2017-10-17 07:33] LABS: THYROID STIMULATING HORMONE 0.18 uIU/mL (0.47-4.68)
--- NOTE | 2017-10-17 07:35 | EKG REPORT ---
SEVERITY:- NORMAL ECG - SINUS RHYTHM : Confirmed by: Geoff Mills MD 17-Oct-2017 07:34:11
[2017-10-17 07:58] LABS: PLATELET COUNT 175 10^3/uL (150-450)
[2017-10-17] MEDS ORDERED: ONDANSETRON HCL INJ/PF 4 MG/2 ML SDV IV PRN (08:00)
[2017-10-17] MEDS ORDERED: FUROSEMIDE INJ/PF 20 MG/2 ML SDV IV PRN (08:46)
[2017-10-17] MEDS: CYCLOSPORINE 0.05% OPH EMULSIO 0.4 ML DROPERETTE OU SCH ×2 (09:30→21:33)
[2017-10-17] MEDS ORDERED: CLINDAMYCIN 600 MG/D5W RTU 600 MG/50 ML RTUPB IV SCH (10:00)
[2017-10-17] MEDS: LEVOTHYROXINE SODIUM 0.075 MG TABLET PO SCH (10:22)
[2017-10-17] MEDS: DOCUSATE SODIUM 100 MG CAPSULE PO SCH (10:22)
[2017-10-17] MEDS: AMLODIPINE BESYLATE 5 MG TABLET PO SCH (10:23)
[2017-10-17] MEDS: PREDNISONE 5 MG TABLET PO SCH (10:24)
[2017-10-17] MEDS: FUROSEMIDE 40 MG TABLET PO SCH ×2 (10:25→18:31)
[2017-10-17] MEDS: FAMOTIDINE 20 MG TABLET PO SCH ×2 (10:25→21:33)
[2017-10-17 12:03] LABS: HEMATOCRIT 27.4 % (36.0-47.0); HEMOGLOBIN 9.3 g/dL (12.0-15.5); MEAN CORPUSCULAR HEMOGLOBIN 30.5 pg (27.0-33.4); MEAN CORPUSCULAR VOLUME 90 fl (80-97); PLATELET COUNT 196 10^3/uL (150-450); RED BLOOD COUNT 3.05 10^6/uL (3.72-5.28); RED CELL DISTRIBUTION WIDTH 13.4 % (11.5-14.0); WHITE BLOOD COUNT 9.3 10^3/uL (4.0-10.5)
--- NOTE | 2017-10-17 13:02 | PDOC PROGRESS REPORT ---
Subjective Progress Note for:: 10/16/17 Subjective:: The patient is seen on morning rounds. She is found resting in bed comfortably on room air with her family present. She is scheduled to the OR today for a repair of her right hip fracture. She states that her pain has been well controlled overnight. She denies chest pain, palpitations, dyspnea, orthopnea, abdominal pain. Overall, she states that she is quite comfortable and has been well taken care of. They have no new questions or concerns at this time. Reason For Visit: RT HIP FRACTURE Physical Exam Vital Signs: Temp Pulse Resp BP Pulse Ox 98.3 F 61 14 118/74 97 10/17/17 08:22 10/17/17 10:02 10/17/17 10:02 10/17/17 08:22 10/17/17 10:02 Intake & Output 10/16/17 10/17/17 10/18/17 06:59 06:59 06:59 Intake Total 1902 2042 Output Total 975 675 Balance 927 1367 Weight 58.1 kg 61.1 kg General appearance: PRESENT: no acute distress, well-developed, well-nourished Head exam: PRESENT: atraumatic, normocephalic Eye exam: PRESENT: conjunctiva pink, EOMI, PERRLA. ABSENT: scleral icterus Ear exam: PRESENT: normal external ear exam Mouth exam: PRESENT: moist, tongue midline Neck exam: ABSENT: carotid bruit, JVD, lymphadenopathy, thyromegaly Respiratory exam: PRESENT: clear to auscultation fer, symmetrical, unlabored. ABSENT: rales, rhonchi, wheezes Cardiovascular exam: PRESENT: RRR, +S1, +S2. ABSENT: diastolic murmur, rubs, systolic murmur Pulses: PRESENT: normal dorsalis pedis pul Vascular exam: PRESENT: normal capillary refill GI/Abdominal exam: PRESENT: normal bowel sounds, soft. ABSENT: distended, guarding, mass, organolmegaly, rebound, tenderness Rectal exam: PRESENT: deferred Extremities exam: PRESENT: full ROM. ABSENT: calf tenderness, clubbing, pedal edema Musculoskeletal exam: PRESENT: tenderness - Rt hip. ABSENT: full ROM - Rt hip Neurological exam: PRESENT: alert, awake, oriented to person, oriented to place , oriented to time, oriented to situation, CN II-XII grossly intact. ABSENT: motor sensory deficit Psychiatric exam: PRESENT: appropriate affect, normal mood. ABSENT: homicidal ideation, suicidal ideation Skin exam: PRESENT: dry, intact, warm. ABSENT: cyanosis, rash Results Laboratory Results: 10/17/17 11:50 10/17/17 06:04 10/16/17 10/17/17 10/17/17 09:45 06:04 06:04 WBC 9.9 RBC 2.88 L Hgb 8.8 L Hct 25.8 L MCV 89 MCH 30.6 MCHC 34.2 RDW 13.3 Plt Count 175 Seg Neutrophils % 89.1 H Lymphocytes % 6.0 L Monocytes % 4.9 Eosinophils % 0.0 Basophils % 0.0 Absolute Neutrophils 8.9 H Absolute Lymphocytes 0.6 Absolute Monocytes 0.5 Absolute Eosinophils 0.0 Absolute Basophils 0.0 Sodium 131.5 L Potassium 4.5 Chloride 104 Carbon Dioxide 16 L Anion Gap 12 BUN 87 H Creatinine 3.23 H Est GFR ( Amer) 17 L Est GFR (Non-Af Amer) 14 L Glucose 117 H Calcium 8.5 TSH Free T4 Free T3 pg/mL Blood Type A POSITIVE Antibody Screen NEGATIVE 10/17/17 10/17/17 06:04 11:50 WBC 9.3 RBC 3.05 L Hgb 9.3 L Hct 27.4 L MCV 90 MCH 30.5 MCHC 34.0 RDW 13.4 Plt Count 196 Seg Neutrophils % Lymphocytes % Monocytes % Eosinophils % Basophils % Absolute Neutrophils Absolute Lymphocytes Absolute Monocytes Absolute Eosinophils Absolute Basophils Sodium Potassium Chloride Carbon Dioxide Anion Gap BUN Creatinine Est GFR ( Amer) Est GFR (Non-Af Amer) Glucose Calcium TSH 0.18 L Free T4 1.36 Free T3 pg/mL 2.10 L Blood Type Antibody Screen 10/17/17 06:04 Troponin I < 0.012 Impressions: Abdomen/Pelvis CT 10/15/17 10:32 IMPRESSION: MODERATELY DISPLACED RIGHT FEMORAL NECK FRACTURE. NO ACUTE FINDINGS IDENTIFIED WITHIN THE ABDOMEN OR PELVIS. ADDITIONAL CHRONIC CHANGES ABOVE. Chest X-Ray 10/15/17 11:00 IMPRESSION: NO ACUTE RADIOGRAPHIC FINDING IN THE CHEST. Assessment & Plan - Diagnosis (1) Fracture of femoral neck, right, closed Qualifiers: Encounter type: initial encounter Qualified Code(s): S72.001A - Fracture of unspecified part of neck of right femur, initial encounter for closed fracture Is this a current diagnosis for this admission?: Yes Plan: Nontraumatic fracture of the right femoral neck. Orthopedics has been consulted; appreciate their interventions and recommendations. Pt is scheduled to go to the OR today with Dr. Mauro. Cardiology has been consulted for cardiac clearance. To remain nonweightbearing. Oxycodone as needed for pain, Zofran as needed for nausea and vomiting. We will provide stress dose steroids today in preparation for surgery. (2) Urinary tract infection Qualifiers: Hematuria presence: with hematuria Is this a current diagnosis for this admission?: Yes Plan: Acute urinary tract infection present on arrival. Blood cultures: Pending Urine culture: Gram-negative rods The patient has been empirically placed on ciprofloxacin. We will adjust antibiotics as cultures result. 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 It is less likely to be prerenal related to dehydration as there was no improvement following IV fluids. Complicated by an acute urinary tract infection. The patient's daughter is able to log onto the patient portal and shows me that her creatinine as of 09/25/17 was 2.55. We will manage infection as above. We will provide gentle IV fluid resuscitation given the patient's CHF. Avoid nephrotoxic medications. We will monitor with strict I&Os and daily chemistries. Continue home dose steroids. (4) Anemia Qualifiers: Anemia type: due to chronic kidney disease Chronic kidney disease stage: stage 4 (severe) Qualified Code(s): N18.4 - Chronic kidney disease, stage 4 ( severe); D63.1 - Anemia in chronic kidney disease; D63.1 - Anemia in chronic kidney disease Is this a current diagnosis for this admission?: Yes Plan: The patient's baseline is a hemoglobin of 10. She is currently at her baseline. Will monitor closely and anticipate a drop in the hemoglobin secondary to hemodilution and following Orthopedic intervention. Will transfuse for Hgb less than 8. (5) Hypertension Plan: Continue the patient's home medications. Hold Lasix given current renal function and volume status. (6) GERD (gastroesophageal reflux disease) Is this a current diagnosis for this admission?: Yes Plan: Continue PPI. (7) Hypothyroidism Plan: Continue patient's home dose of synthroid. (8) CKD (chronic kidney disease) stage 4, GFR 15-29 ml/min Is this a current diagnosis for this admission?: Yes Plan: Plan as above. (9) CHF (congestive heart failure) Qualifiers: Congestive heart failure type: unspecified Congestive heart failure chronicity: chronic Qualified Code(s): I50.9 - Heart failure, unspecified Is this a current diagnosis for this admission?: Yes Plan: Will continue patient's home medications. Pro BNP 999 Pt appears to be volume depleted. Will hold lasix and provide gentle IV hydration. Will monitor fluid volume status closely. - Time Time Spent with patient: 15-24 minutes Medications reviewed and adjusted accordingly: Yes - Inpatient Certification Based on my medical assessment, after consideration of the patient's comorbidities, presenting symptoms, or acuity I expect that the services needed warrant INPATIENT care.: Yes I certify that my determination is in accordance with my understanding of Medicare's requirements for reasonable and necessary INPATIENT services [42 CFR 412.3e].: Yes Medical Necessity: Need for Surgery
--- NOTE | 2017-10-17 13:12 | PDOC PROGRESS REPORT ---
Subjective Progress Note for:: 10/17/17 Subjective:: The patient is seen on morning rounds postop day 1 after having had a right hip estelle-arthroplasty by Dr. Yanet Solis. She is very pleased to report that she is pain-free currently and has had very little pain overnight. She denies pain, palpitations, orthopnea, dyspnea. She is asked to be assisted to a semisitting position for breakfast. She has no other questions or concerns at this time. Reason For Visit: RT HIP FRACTURE Physical Exam Vital Signs: Temp Pulse Resp BP Pulse Ox 98.3 F 61 14 118/74 97 10/17/17 08:22 10/17/17 10:02 10/17/17 10:02 10/17/17 08:22 10/17/17 10:02 Intake & Output 10/16/17 10/17/17 10/18/17 06:59 06:59 06:59 Intake Total 1902 2042 Output Total 975 675 Balance 927 1367 Weight 58.1 kg 61.1 kg General appearance: PRESENT: no acute distress, well-developed, well-nourished Head exam: PRESENT: atraumatic, normocephalic Eye exam: PRESENT: conjunctiva pink, EOMI, PERRLA. ABSENT: scleral icterus Ear exam: PRESENT: normal external ear exam Mouth exam: PRESENT: moist, tongue midline Neck exam: ABSENT: carotid bruit, JVD, lymphadenopathy, thyromegaly Respiratory exam: PRESENT: clear to auscultation fer, symmetrical, unlabored. ABSENT: rales, rhonchi, wheezes Cardiovascular exam: PRESENT: RRR, +S1, +S2. ABSENT: diastolic murmur, rubs, systolic murmur Pulses: PRESENT: normal dorsalis pedis pul Vascular exam: PRESENT: normal capillary refill GI/Abdominal exam: PRESENT: normal bowel sounds, soft. ABSENT: distended, guarding, mass, organolmegaly, rebound, tenderness Rectal exam: PRESENT: deferred Extremities exam: PRESENT: full ROM. ABSENT: calf tenderness, clubbing, pedal edema Musculoskeletal exam: ABSENT: full ROM Neurological exam: PRESENT: alert, awake, oriented to person, oriented to place , oriented to time, oriented to situation, CN II-XII grossly intact. ABSENT: motor sensory deficit Psychiatric exam: PRESENT: appropriate affect, normal mood. ABSENT: homicidal ideation, suicidal ideation Skin exam: PRESENT: dry, intact, warm. ABSENT: cyanosis, rash Results Laboratory Results: 10/17/17 11:50 10/17/17 06:04 10/16/17 10/17/17 10/17/17 09:45 06:04 06:04 WBC 9.9 RBC 2.88 L Hgb 8.8 L Hct 25.8 L MCV 89 MCH 30.6 MCHC 34.2 RDW 13.3 Plt Count 175 Seg Neutrophils % 89.1 H Lymphocytes % 6.0 L Monocytes % 4.9 Eosinophils % 0.0 Basophils % 0.0 Absolute Neutrophils 8.9 H Absolute Lymphocytes 0.6 Absolute Monocytes 0.5 Absolute Eosinophils 0.0 Absolute Basophils 0.0 Sodium 131.5 L Potassium 4.5 Chloride 104 Carbon Dioxide 16 L Anion Gap 12 BUN 87 H Creatinine 3.23 H Est GFR ( Amer) 17 L Est GFR (Non-Af Amer) 14 L Glucose 117 H Calcium 8.5 TSH Free T4 Free T3 pg/mL Blood Type A POSITIVE Antibody Screen NEGATIVE 10/17/17 10/17/17 06:04 11:50 WBC 9.3 RBC 3.05 L Hgb 9.3 L Hct 27.4 L MCV 90 MCH 30.5 MCHC 34.0 RDW 13.4 Plt Count 196 Seg Neutrophils % Lymphocytes % Monocytes % Eosinophils % Basophils % Absolute Neutrophils Absolute Lymphocytes Absolute Monocytes Absolute Eosinophils Absolute Basophils Sodium Potassium Chloride Carbon Dioxide Anion Gap BUN Creatinine Est GFR ( Amer) Est GFR (Non-Af Amer) Glucose Calcium TSH 0.18 L Free T4 1.36 Free T3 pg/mL 2.10 L Blood Type Antibody Screen 10/17/17 06:04 Troponin I < 0.012 Impressions: Abdomen/Pelvis CT 10/15/17 10:32 IMPRESSION: MODERATELY DISPLACED RIGHT FEMORAL NECK FRACTURE. NO ACUTE FINDINGS IDENTIFIED WITHIN THE ABDOMEN OR PELVIS. ADDITIONAL CHRONIC CHANGES ABOVE. Chest X-Ray 10/15/17 11:00 IMPRESSION: NO ACUTE RADIOGRAPHIC FINDING IN THE CHEST. Assessment & Plan - Diagnosis (1) Fracture of femoral neck, right, closed Qualifiers: Encounter type: initial encounter Qualified Code(s): S72.001A - Fracture of unspecified part of neck of right femur, initial encounter for closed fracture Is this a current diagnosis for this admission?: Yes Plan: Nontraumatic fracture of the right femoral neck. Orthopedics has been consulted; now status post right hip hemiarthroplasty. Cardiology has been consulted for cardiac clearance. Weightbearing per orthopedics recommendations. PT/OT consultation is pending. Patient has been typed and crossed 2 units packed red blood cells; will transfuse for hemoglobin less than 8. Oxycodone as needed for pain, Zofran as needed for nausea and vomiting. Anticipate need for SNF for acute rehab on discharge; appreciate discharge planning's assistance. (2) Urinary tract infection Qualifiers: Hematuria presence: with hematuria Is this a current diagnosis for this admission?: Yes Plan: Acute urinary tract infection present on arrival. Blood cultures: No growth at 24 hours Urine culture: Pseudomonas aeruginosa; sensitive to ciprofloxacin Continue ciprofloxacin. Given patient's report of frequent UTIs, recommend 14 days of therapy. 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 It is less likely to be prerenal related to dehydration as there was no improvement following IV fluids. Complicated by an acute urinary tract infection. The patient's daughter is able to log onto the patient portal and shows me that her creatinine as of 09/25/17 was 2.55. We will manage infection as above. Avoid nephrotoxic medications. We will monitor with strict I&Os and daily chemistries. Continue home dose steroids. (4) Anemia Qualifiers: Anemia type: due to chronic kidney disease Chronic kidney disease stage: stage 4 (severe) Qualified Code(s): N18.4 - Chronic kidney disease, stage 4 ( severe); D63.1 - Anemia in chronic kidney disease; D63.1 - Anemia in chronic kidney disease Is this a current diagnosis for this admission?: Yes Plan: The patient's baseline is a hemoglobin of 10. She is currently at her baseline. Will monitor closely and anticipate a drop in the hemoglobin secondary to hemodilution and following Orthopedic intervention. Will transfuse for Hgb less than 8. The patient has been typed and crossed in anticipation of this; 2 units are on hold. (5) Hypertension Plan: Continue the patient's home medications. Hold Lasix given current renal function and volume status. (6) GERD (gastroesophageal reflux disease) Is this a current diagnosis for this admission?: Yes Plan: Continue PPI. (7) Hypothyroidism Plan: TSH is slightly low, however, T4 is appropriate. Continue patient's home dose of synthroid. (8) CKD (chronic kidney disease) stage 4, GFR 15-29 ml/min Is this a current diagnosis for this admission?: Yes Plan: Plan as above. The patient will need to follow-up with her student specialist shortly after discharge to discuss worsened CKD and recommendations for dialysis in the future. (9) CHF (congestive heart failure) Qualifiers: Congestive heart failure type: unspecified Congestive heart failure chronicity: chronic Qualified Code(s): I50.9 - Heart failure, unspecified Is this a current diagnosis for this admission?: Yes Plan: Will continue patient's home medications. Pro BNP 999 on admission. The patient initially appeared to be volume depleted and so her Lasix was held and she was provided gentle IV hydration. She received additional IV fluids while in surgery. She is +2.3 L with a noted 3 kg weight gain. At this time, she actually appears to be euvolemic; her lung sounds are clear and no dependent edema is noted. Will hold IV fluids and resume her home Lasix dose. - Time Time Spent with patient: 25-34 minutes Medications reviewed and adjusted accordingly: Yes Anticipated discharge: Acute Rehab Within: Other - When approved by orthopedics.
--- NOTE | 2017-10-17 18:24 | Operative Report ---
Operative Report DATE OF SURGERY: 10/16/17 PREOPERATIVE DIAGNOSIS: Displaced right femoral neck fracture POSTOPERATIVE DIAGNOSIS: Same OPERATION: Right hip hemiarthroplasty SURGEON: QUIQUE CAMACHO ANESTHESIA: GA TISSUE REMOVED OR ALTERED: None COMPLICATIONS: None ESTIMATED BLOOD LOSS: 300mL PROCEDURE: Procedure In Detail: Patient was seen and evaluated in the preoperative holding area. The lower extremity was initialized and marked. Patient received 2g of Ancef IV for bacterial prophylaxis. Patient was taken back to the operative room where transferred to the operative table and placed under spinal anesthesia. Once they were adequately anesthetized patient was placed in the lateral position an axillary roll was placed in nonoperative left lower extremity was carefully padded.. A surgical team debriefing was performed ensuring all instrumentation was available, the surgical procedure was discussed with possible concerns reviewed. The upper extremity was prepped with chlor prep draped in a sterile fashion. A timeout was done identifying correct patient, procedure and extremity everyone in attendance agree with this and verbalized no concerns. A posterior skin incision was made just posterior to the greater trochanter. Dissection was done down to the gluteus avery and iliotibial band fascia this was split in line with the skin incision. Any peripheral vasculature was carefully coagulated. A Charley retractor was placed after palpation of the sciatic nerve and the sciatic nerve was safely retracted from the wound throughout the entirety of the case. I then identified the external rotators with the use of a Bovie this was carefully elevated off along with underlying capsule from the neck in a T-shaped capsulotomy was made just superior to the piriformis. This was then tagged. The femoral neck was identified and approximately 1 fingerbreadth above the lesser trochanter a freshening cut was made. Any excess bone remaining was carefully removed. I then used the corkscrew to remove the femoral head from the acetabulum which was then measured on the back table. The excess bone was removed and removed the scopes irrigated with normal saline. I then trial the femoral head according to what was measured on the back table and got good fit within the acetabulum. I then turned my attention to femoral preparation. A box osteotome was first used to get laterally along the trochanter. I then used the lateralizing reamer to avoid medialization of the stem and ultimately varus malalignment. I then began broaching with a 0 broach and broached up to a #6 broach which was somewhat countersunk. I then utilized the calcar reamer reamed out the appropriate level. I then broached up to a #7 broach which I got good proximal fit. I began trialing with a #0 neck length and had good stability through flexion, internal rotation and adduction. There is no instability with external rotation. Leg lengths were found to be compatible and equal to the other side. At this point the trial implants were removed. The wound was irrigated with normal saline. I then implanted my appropriate size stem the good peripheral fit and placement at my predetermined broach level. I then implanted the final unipolar head. The hip was reduced once again measures stability and good stability throughout all range of motion with no palpable impingement. Leg lengths were equivalent to the nonoperative side. I then want to get luis irrigated the wound with normal saline. Utilizing a #1 Vicryl suture I secured the capsule posteriorly into the trochanter. I then irrigated once again with normal saline. The gluteus avery and tensor fascia tayla was closed with a running 0 Prolene suture. Exparel was injected deep and into the gluteus avery tissue. I then injected Exparel in multiple locations throughout the subcutaneous tissues, hip wound and the fascia. I then closed the subcutaneous tissues with interrupted 2-0 Vicryl suture. The skin was closed with raj.. Sterile Acticoat followed by OpSite dressing was applied. Patient was then awoken from anesthesia laid supine at which point her leg lengths were once again checked and found to be equal to the nonoperative extremity. Patient was then transferred to the operating stretcher and placed in an abduction pillow. The was no intraoperative crepitations patient tolerated she will was stable to PACU. Postoperative plan: Patient will be started on Lovenox for DVT prophylaxis. She will begin physical therapy on postop day #1. Implants: Accolade II Size 7, 45mm bipolar, -3 Neck Length
--- NOTE | 2017-10-17 18:28 | PDOC PROGRESS REPORT ---
Subjective Progress Note for:: 10/17/17 Subjective:: Patient states relief of pain postoperatively. There is minimal with physical therapy today but states that the pain is adequately controlled. No issues overnight Reason For Visit: RT HIP FRACTURE Physical Exam Vital Signs: Temp Pulse Resp BP Pulse Ox 36.3 C 59 L 12 145/43 H 97 10/17/17 14:48 10/17/17 14:48 10/17/17 14:48 10/17/17 14:48 10/17/17 14:48 Intake & Output 10/16/17 10/17/17 10/18/17 06:59 06:59 06:59 Intake Total 1902 2042 Output Total 975 675 Balance 927 1367 Weight 58.1 kg 61.1 kg Adult Front & Back Image: 1 - Acticoat and OpSite dressing are dry clean and intact. No ecchymosis. Limb lengths are grossly equal. May be a couple millimeters longer on the operative site. Range of motion of hip causes some discomfort the pain is significantly decreased. Good sensation to light touch with intact plantarflexion and dorsiflexion of the ankle and digits. Soft and depressible calf Results Laboratory Results: 10/17/17 11:50 10/17/17 06:04 10/16/17 10/17/17 10/17/17 09:45 06:04 06:04 WBC 9.9 RBC 2.88 L Hgb 8.8 L Hct 25.8 L MCV 89 MCH 30.6 MCHC 34.2 RDW 13.3 Plt Count 175 Seg Neutrophils % 89.1 H Lymphocytes % 6.0 L Monocytes % 4.9 Eosinophils % 0.0 Basophils % 0.0 Absolute Neutrophils 8.9 H Absolute Lymphocytes 0.6 Absolute Monocytes 0.5 Absolute Eosinophils 0.0 Absolute Basophils 0.0 Sodium 131.5 L Potassium 4.5 Chloride 104 Carbon Dioxide 16 L Anion Gap 12 BUN 87 H Creatinine 3.23 H Est GFR ( Amer) 17 L Est GFR (Non-Af Amer) 14 L Glucose 117 H Calcium 8.5 TSH Free T4 Free T3 pg/mL Blood Type A POSITIVE Antibody Screen NEGATIVE 10/17/17 10/17/17 06:04 11:50 WBC 9.3 RBC 3.05 L Hgb 9.3 L Hct 27.4 L MCV 90 MCH 30.5 MCHC 34.0 RDW 13.4 Plt Count 196 Seg Neutrophils % Lymphocytes % Monocytes % Eosinophils % Basophils % Absolute Neutrophils Absolute Lymphocytes Absolute Monocytes Absolute Eosinophils Absolute Basophils Sodium Potassium Chloride Carbon Dioxide Anion Gap BUN Creatinine Est GFR ( Amer) Est GFR (Non-Af Amer) Glucose Calcium TSH 0.18 L Free T4 1.36 Free T3 pg/mL 2.10 L Blood Type Antibody Screen 10/17/17 06:04 Troponin I < 0.012 Impressions: Abdomen/Pelvis CT 10/15/17 10:32 IMPRESSION: MODERATELY DISPLACED RIGHT FEMORAL NECK FRACTURE. NO ACUTE FINDINGS IDENTIFIED WITHIN THE ABDOMEN OR PELVIS. ADDITIONAL CHRONIC CHANGES ABOVE. Chest X-Ray 10/15/17 11:00 IMPRESSION: NO ACUTE RADIOGRAPHIC FINDING IN THE CHEST. Status: Image reviewed by me Assessment & Plan - Diagnosis (1) Fracture of femoral neck, right, closed Qualifiers: Encounter type: initial encounter Qualified Code(s): S72.001A - Fracture of unspecified part of neck of right femur, initial encounter for closed fracture Is this a current diagnosis for this admission?: Yes - Plan Summary Plan Summary: Patient is 82-year-old female POD #1 from right hip hemiarthroplasty. Continue physical therapy Continue pain control Continue DVT prophylaxis Awaiting [facility] facility placement Monitor H&H. If any lesser than today's then I would recommend blood transfusion
[2017-10-17] MEDS: LATANOPROST 0.005% OPH SOLN 2.5 ML OU SCH (21:33)
[2017-10-17] MEDS: RIVAROXABAN 10 MG TABLET PO SCH (21:35)
[2017-10-17] MEDS: CIPROFLOXACIN 400 MG/D5W RTU 400 MG/200 ML RTUPB IV SCH (21:35)
[2017-10-18 06:07] LABS: HEMATOCRIT 26.7 % (36.0-47.0); HEMOGLOBIN 9.2 g/dL (12.0-15.5); MEAN CORPUSCULAR HEMOGLOBIN 30.5 pg (27.0-33.4); MEAN CORPUSCULAR HGB CONC 34.3 g/dL (32.0-36.0); MEAN CORPUSCULAR VOLUME 89 fl (80-97); PLATELET COUNT 201 10^3/uL (150-450); RED CELL DISTRIBUTION WIDTH 13.3 % (11.5-14.0)
[2017-10-18] MEDS: LEVOTHYROXINE SODIUM 0.075 MG TABLET PO SCH (06:30)
[2017-10-18 06:35] LABS: ANION GAP 12 (5-19); BLOOD UREA NITROGEN 88 mg/dL (7-20); CALCIUM 8.6 mg/dL (8.4-10.2); CARBON DIOXIDE 20 mmol/L (22-30); CHLORIDE 102 mmol/L (98-107); GLUCOSE 107 mg/dL (75-110); POTASSIUM 4.4 mmol/L (3.6-5.0); SODIUM 134.4 mmol/L (137-145)
--- NOTE | 2017-10-18 09:24 | PDOC PROGRESS REPORT ---
Subjective Progress Note for:: 10/18/17 Subjective:: Patient lying in bed comfortably. She is encouraged that her pain has improved. She denies chest pain or shortness of breath. Has been able to ambulate with assistance and physical therapy. Reason For Visit: RT HIP FRACTURE Physical Exam Vital Signs: Temp Pulse Resp BP Pulse Ox 97.9 F 54 L 18 142/64 H 98 10/18/17 08:00 10/18/17 08:00 10/18/17 08:00 10/18/17 08:00 10/18/17 08:00 Intake & Output 10/17/17 10/18/17 10/19/17 06:59 06:59 06:59 Intake Total 2042 1268 Output Total 675 Balance 1367 1268 Weight 61.1 kg 64.3 kg Musculoskeletal exam: PRESENT: other - Right hip: Dressing clean/dry/intact no erythema or drainage. No calf tenderness. Mild thigh swelling. Intact plantar flexion/dorsiflexion. No evidence of malrotation or limb length inequality Results Laboratory Results: 10/18/17 05:35 10/18/17 05:35 10/17/17 10/18/17 10/18/17 11:50 05:35 05:35 WBC 9.3 7.0 RBC 3.05 L 3.00 L Hgb 9.3 L 9.2 L Hct 27.4 L 26.7 L MCV 90 89 MCH 30.5 30.5 MCHC 34.0 34.3 RDW 13.4 13.3 Plt Count 196 201 Sodium 134.4 L Potassium 4.4 Chloride 102 Carbon Dioxide 20 L Anion Gap 12 BUN 88 H Creatinine 3.23 H Est GFR ( Amer) 17 L Est GFR (Non-Af Amer) 14 L Glucose 107 Calcium 8.6 10/17/17 06:04 Troponin I < 0.012 Impressions: Abdomen/Pelvis CT 10/15/17 10:32 IMPRESSION: MODERATELY DISPLACED RIGHT FEMORAL NECK FRACTURE. NO ACUTE FINDINGS IDENTIFIED WITHIN THE ABDOMEN OR PELVIS. ADDITIONAL CHRONIC CHANGES ABOVE. Chest X-Ray 10/15/17 11:00 IMPRESSION: NO ACUTE RADIOGRAPHIC FINDING IN THE CHEST. Assessment & Plan - Diagnosis (1) Fracture of femoral neck, right, closed Qualifiers: Encounter type: initial encounter Qualified Code(s): S72.001A - Fracture of unspecified part of neck of right femur, initial encounter for closed fracture Is this a current diagnosis for this admission?: Yes Plan: Status post right hip hemiarthroplasty #1 physical therapy with hip precautions #2 pain control #3 H&H remains stable and patient is asymptomatic. #4 Xarelto for DVT prophylaxis #5 discharge planning patient orthopedically [facility]
[2017-10-18] MEDS: PREDNISONE 5 MG TABLET PO SCH (10:15)
[2017-10-18] MEDS: CYCLOSPORINE 0.05% OPH EMULSIO 0.4 ML DROPERETTE OU SCH ×2 (10:15→21:21)
[2017-10-18] MEDS: DOCUSATE SODIUM 100 MG CAPSULE PO SCH (10:15)
[2017-10-18] MEDS: FUROSEMIDE 40 MG TABLET PO SCH ×2 (10:17→17:30)
[2017-10-18] MEDS: FAMOTIDINE 20 MG TABLET PO SCH ×2 (10:17→21:22)
[2017-10-18] MEDS: AMLODIPINE BESYLATE 5 MG TABLET PO SCH (10:17)
[2017-10-18] MEDS: METOPROLOL TARTRATE 25 MG TABLET PO SCH ×2 (13:52→21:37)
--- NOTE | 2017-10-18 19:00 | PDOC PROGRESS REPORT ---
Subjective Progress Note for:: 10/18/17 Subjective:: No overnight events. Making small progress with physical therapy. Not requiring pain medications around the clock. In good spirit. Reason For Visit: RT HIP FRACTURE Physical Exam Vital Signs: Temp Pulse Resp BP Pulse Ox 97.8 F 66 17 148/50 H 97 10/18/17 15:56 10/18/17 17:44 10/18/17 15:56 10/18/17 17:44 10/18/17 15:56 Intake & Output 10/17/17 10/18/17 10/19/17 06:59 06:59 06:59 Intake Total 2042 1268 798 Output Total 675 Balance 1367 1268 798 Weight 61.1 kg 64.3 kg Results Laboratory Results: 10/18/17 05:35 10/18/17 05:35 10/18/17 10/18/17 05:35 05:35 WBC 7.0 RBC 3.00 L Hgb 9.2 L Hct 26.7 L MCV 89 MCH 30.5 MCHC 34.3 RDW 13.3 Plt Count 201 Sodium 134.4 L Potassium 4.4 Chloride 102 Carbon Dioxide 20 L Anion Gap 12 BUN 88 H Creatinine 3.23 H Est GFR ( Amer) 17 L Est GFR (Non-Af Amer) 14 L Glucose 107 Calcium 8.6 10/17/17 06:04 Troponin I < 0.012 Impressions: Abdomen/Pelvis CT 10/15/17 10:32 IMPRESSION: MODERATELY DISPLACED RIGHT FEMORAL NECK FRACTURE. NO ACUTE FINDINGS IDENTIFIED WITHIN THE ABDOMEN OR PELVIS. ADDITIONAL CHRONIC CHANGES ABOVE. Chest X-Ray 10/15/17 11:00 IMPRESSION: NO ACUTE RADIOGRAPHIC FINDING IN THE CHEST. Assessment & Plan - Diagnosis (1) Fracture of femoral neck, right, closed Qualifiers: Encounter type: initial encounter Qualified Code(s): S72.001A - Fracture of unspecified part of neck of right femur, initial encounter for closed fracture Is this a current diagnosis for this admission?: Yes Plan: S/p right hip hemiarthroplasty on 10/17/17, currently POD #1 - Doing well post op - Worked with physical therapy today - Has Tylenol and Oxycodone ordered PRN pain - Xarelto for DVT ppx (2) Acute on chronic renal failure Qualifiers: Chronic kidney disease stage: stage 4 (severe) Is this a current diagnosis for this admission?: Yes Plan: Stable, Cr 3.23 on 10/17/17 (3) Urinary tract infection Qualifiers: Hematuria presence: with hematuria Is this a current diagnosis for this admission?: Yes Plan: Urine culture from 10/15/17 with Pseudomonas, sensitivities reviewed - Currently on Cipro since 10/17, continue for now - Time Time Spent with patient: Less than 15 minutes Within: within 48 hours
[2017-10-18] MEDS: CIPROFLOXACIN 400 MG/D5W RTU 400 MG/200 ML RTUPB IV SCH (21:20)
[2017-10-18] MEDS: RIVAROXABAN 10 MG TABLET PO SCH (21:23)
[2017-10-19] MEDS: LATANOPROST 0.005% OPH SOLN 2.5 ML OU SCH (05:04)
[2017-10-19] MEDS: LEVOTHYROXINE SODIUM 0.075 MG TABLET PO SCH (05:40)
[2017-10-19] MEDS: FAMOTIDINE 20 MG TABLET PO SCH (09:56)
[2017-10-19] MEDS: DOCUSATE SODIUM 100 MG CAPSULE PO SCH (09:56)
[2017-10-19] MEDS: FUROSEMIDE 40 MG TABLET PO SCH (09:56)
[2017-10-19] MEDS: METOPROLOL TARTRATE 25 MG TABLET PO SCH (09:56)
[2017-10-19] MEDS: AMLODIPINE BESYLATE 5 MG TABLET PO SCH (09:56)
[2017-10-19] MEDS: CYCLOSPORINE 0.05% OPH EMULSIO 0.4 ML DROPERETTE OU SCH (09:57)
[2017-10-19] MEDS ORDERED: (PENDING PHARMACY ID) (Cholecalciferol (Vitamin D3) [Vitamin D3 2000 Unit Tablet] 2,000 UN PO SCH (10:00)
--- NOTE | 2017-10-19 10:52 | TRANSFER SUMMARY E ---
Transfer Summary NAME: JAMIN JEAN-BAPTISTE : 1935 AGE: 82Y ADMITTED: 10/15/2017 TRANSFERRED: 10/19/2017 CODE STATUS: FULL CODE. RECEIVING FACILITY: [facility]. OPERATIVE ORTHOPEDIST: Dr. Holt DISCHARGE DIAGNOSES: Includes: 1. Right closed femoral neck fracture status post ORIF postoperative day number 2. 2. Urinary tract infection, has completed treatment. 3. Acute on chronic stage 4 kidney disease. Baseline creatinine is 3.2. 4. Hypothyroidism. 5. Hypertension. 6. Hyperlipidemia. 7. Chronic diarrhea. 8. Osteoarthritis. 9. GERD. 10. History of vasculitis and current steroid therapy. 11. Anemia of chronic disease. 12. Congestive heart failure. DISCHARGE MEDICATIONS: Include: 1. Xarelto 10 mg p.o. q. hour of sleep. 2. OxyIR 5 mg p.o. q. 4 hours p.r.n., 20 tablets, 0 refills. 3. Colace 100 mg p.o. daily. 4. Flomax 0.4 mg p.o. q. hour of sleep. 5. Simvastatin 20 mg p.o. q. hour of sleep. 6. Prednisone 2.5 mg p.o. t.i.d. 7. Mycophenolate mofetil 250 mg p.o. b.i.d. 8. Synthroid 0.075 mg p.o. daily. 9. Xalatan 0.005% 1 drop in both eyes q. hour of sleep. 10. Lasix 40 mg p.o. b.i.d. 11. Restasis 1 drop in both eyes b.i.d. 12. Vitamin D3 2000 IU p.o. daily. 13. Amlodipine 5 mg p.o. daily. DIET: As tolerated. ACTIVITY: As per rehab standards. DIAGNOSTICS: Lab values are as follows: Hematology obtained on 10/18/2017: WBCs are 7.0, hemoglobin is 9.2, hematocrit is 26.7, platelet count is 201,000. Chemistry obtained on 10/18/2017: Sodium is 135, potassium 4.4, chloride is 102, carbon dioxide 20, BUN 88, creatinine is 3.23, glucose 107, calcium is 8.6. Troponin is 0.012. TSH is 0.18, T4 is 1.36, T3 is 2.10. Bilirubin is 0.5, AST 11, ALT is 29, Alk phos 67. Urinalysis obtained on 10/15/2017: Color yellow, appearance cloudy. PH is 5.0, specific gravity is 1.006. Protein 30, glucose negative, ketones negative, occult blood moderate, nitrate negative, bilirubin negative, urobilinogen is negative, leukocyte esterase is large. WBCs are greater than 182, RBCs 2, bacteria trace, WBCs many. Ascorbic acid is negative. Microbiology: Urine culture obtained on 10/15/2017 reveals Pseudomonas. Blood cultures obtained on 10/15/[address] of the abdomen and pelvis obtained on 10/15/2017 reveals moderately displaced right femoral neck fracture with no acute findings identified within the abdomen or pelvis. Chest x-ray obtained on 10/15/2017 reveals no acute radiographic finding of the chest. EKG obtained on 10/15/2017 reveals sinus rhythm. EKG obtained on 10/17/2017 reveals sinus rhythm. PHYSICAL EXAMINATION: GENERAL: On examination, the patient is a well-developed, reasonably nourished 82-year-old female who is awake, alert, and oriented to person, place, time, and situation. She is verbal, conversational, does not appear to be in any acute distress. VITAL SIGNS: Temperature is 97.4, pulse 59, respirations 16, blood pressure is 169/45, oxygen saturation is 99% on room air. SKIN: Warm and dry. No rash. She is not diaphoretic. HEENT: Pupils equal, round, and reactive to light and accommodation. Conjunctiva is pink. There is no evidence of JVP. CARDIOVASCULAR SYSTEM: Heart is regular. There is no murmur or rub. CHEST: Clear, symmetrical, unlabored. ABDOMEN: Soft, nontender, nondistended. BACK: No CVA tenderness or sacral edema. EXTREMITIES: No clubbing, cyanosis, edema. PSYCHIATRIC: Appropriate affect. Pleasant mood. HISTORY OF PRESENT ILLNESS: The patient is an 82-year-old female with a past medical history of hypertension and hyperlipidemia. The patient presented to the emergency department with a chief complaint of right leg pain. The patient presented with a 5 day progressing worsening of right leg pain. She denied any injury or fall, stated that her pain began after visiting with her daughter and climbing a flight of stairs, which she is not custom to do, and the patient gradually worsened until she became bedbound the day before presentation when she finally agreed to come to the emergency department for evaluation. Upon presentation to the emergency department, the patient was found to have a right femoral neck fracture, and the patient was referred to the hospitalist for admission and management. HOSPITAL COURSE: The patient was admitted to surgical unit. The patient was found to have a urinary tract infection, which she has received 5 days of IV antibiotic coverage for. The patient has been covered since 10/15/2017. The patient went to the OR for ORIF on 10/17/2017 for which she tolerated quite well. The patient has been participating in therapies and is quite eager for discharge. The patient otherwise remained hemodynamically stable. DISCHARGE PLANNING: The patient is advised to follow back up with [facility] within 7-10 days for hospital followup. Time spent on this discharge including assessment, plan, physical examination, patient education, review of records, resource alignment, and specialty collaboration is 35 minutes. DICTATING PHYSICIAN: RICKY ELAINE NP [id number] PHY#: [id number] ID: [id number] JOB#: [id number] ACCT: [id number] cc:RICKY ELAINE NP >
[2017-10-19] MEDS ORDERED: PREDNISONE 5 MG TABLET PO ONE (11:30)
[2017-10-19] MEDS ORDERED: CHOLECALCIFEROL (D3) 1,000 UNIT TABLET PO ONE (11:30)
[2017-10-19] MEDS ORDERED: PREDNISONE 10 MG TABLET PO ONE (11:30)
[2017-10-19] MEDS ORDERED: MYCOPHENOLATE MOFETIL 250 MG CAPSULE PO ONE (12:00)
[2017-10-19 12:35] VITALS: BP 131/49
--- NOTE | 2017-10-19 20:39 | PROGRESS NOTE E ---
Progress Note NAME: JAMIN JEAN-BAPTISTE : 1935 AGE: 82Y DATE: 10/19/2017 ROOM: 433 As earlier discussed with the family before I signed out of the case, I did get in touch with *------* the patient's primary care physician and brought him up to date with this patient's admission and other lab results and worsening of her creatinine and about the fracture that she underwent successful surgery. I also got in touch with Dr. Mcwilliams, the mill set up and Dr. Montelongo called me this morning after I had left a message for him and after discussions, he wanted the patient's prednisone to be increased to 50 mg p.o. daily. I wrote this order after I discussed it with Dr. Ochoa, the hospitalist. I have also spoken to the daughter about this. The patient has an appointment to follow up with Dr. Montelongo as soon as possible. DICTATING PHYSICIAN: SHERIN CANTU M.D. [id number] Tee#: [id number] ID: [id number] JOB#: [id number] ACCT: [id number] cc: >
[2017-10-19] MEDS ORDERED: (PENDING PHARMACY ID) (Simvastatin [Simvastatin] 20 MG) PO SCH (22:00)
[2017-10-19] MEDS ORDERED: TAMSULOSIN HCL 0.4 MG CAP.SR.24H PO SCH (22:00)
[2017-10-19] MEDS ORDERED: SIMVASTATIN 10 MG TABLET PO SCH (22:00)
[2017-10-19] MEDS ORDERED: MYCOPHENOLATE MOFETIL 250 MG CAPSULE PO SCH (22:00)
[2017-10-20] MEDS ORDERED: CHOLECALCIFEROL (D3) 1,000 UNIT TABLET PO SCH (10:00)
[2017-10-20] MEDS ORDERED: PREDNISONE 10 MG TABLET PO SCH ×2 (10:00)
[2017-10-20] MEDS ORDERED: PREDNISONE 5 MG TABLET PO SCH ×3 (10:00)
--- NOTE | 2017-10-21 07:46 | TRANSFER SUMMARY E ---
Transfer Summary NAME: JAMIN JEAN-BAPTISTE : 1935 AGE: 82Y ADMITTED: 10/15/2017 TRANSFERRED: 10/20/2017 ADDENDUM: Given the patient's worsening creatinine, Dr. Harrington with Cardiology discussed the case with Dr. Mcwilliams, the sap portal developer and Dr. Montelongo, roto gravure press operator. The case was discussed in the detail and the patient's prednisone will be increased to 50 mg p.o. daily. ADDENDUM TO THE ORIGINAL TRANSFER SUMMARY: Needs to be - medication #6 prednisone 2.5 mg p.o. t.i.d. Does need to be increased to prednisone 50 mg p.o. daily due to her history of vasculitis. The case was discussed with Dr. Harrington and a correction will be made to this transfer summary and sent to [facility]. DICTATING PHYSICIAN: RICKY ELAINE NP [id number] PHY#: [id number] ID: [id number] JOB#: [id number] ACCT: [id number] cc:RICKY ELAINE NP >
--- NOTE | 2017-10-22 23:29 | PROGRESS NOTE E ---
Progress Note NAME: JAMIN JEAN-BAPTISTE : 1935 AGE: 82Y DATE: 10/17/2017 ROOM: 433 SUBJECTIVE: The patient denies any chest pain or discomfort. She is very comfortable. Her right site of surgery in the femoral neck fracture pain is very well controlled. She denies any palpitations. There is no PND or orthopnea. There is no dizziness. There is no shortness of breath. There is no arrhythmia seen. There is no PND, orthopnea, or leg edema. There are no TIA or CVA symptoms. OBJECTIVE: GENERAL: On examination, the patient is well built and well nourished in very good spirits. She states that she did some walking and weightbearing with the physical therapist today. VITAL SIGNS: She is afebrile with a temperature of 97.9 degrees Fahrenheit, pulse of 54 beats per minute, blood pressure 142/64, respirations are 18 per minute, 02 saturations are 98% on room air. HEENT: Head is atraumatic, normocephalic. Eyes: Pupils are equal, round, regular and reactive to light and accommodation. Extraocular movements are normal. There is no conjunctival pallor. There is no scleral icterus. ENT is negative. NECK: Supple. There is no JVD. There is no lymphadenopathy. There is no goiter. Carotids are equal. There is no bruit. Trachea is central. LUNGS: Clear to auscultation and percussion. HEART: There is no chest wall tenderness. S1 and S2 are heard. There is no S3 gallop. There is no S4 gallop. There is a systolic murmur in the left sternal border and apex with no radiation. There is no rub. ABDOMEN: Soft, nontender. There is no hepatosplenomegaly. Bowel sounds are well heard. EXTREMITIES: Pedal pulses are slightly diminished. Femorals are slightly diminished. Dressing in the right groin hip area is clean and dry. There is no pedal edema. There is no DVT or cellulitis. There is no vascular compromise in either leg. There is no calf tenderness. There is no cyanosis or clubbing. CENTRAL NERVOUS SYSTEM: The patient is conscious, awake and alert oriented x3 with no focal deficits. PSYCHIATRIC: The patient's judgment and insight are intact. Her affect is normal. DIAGNOSTICS: The patient's white count is 9300, hemoglobin is 9.3, hematocrit is 27.4, platelet count is 196,000. The patient's sodium is 131.5, potassium 4.5, chloride is 104, CO2 of 16, BUN is 87, creatinine is 3.23. GFR is 14 mL, which is stage 4 chronic kidney disease. This has come down from 28 about 2 weeks as per the daughter. The patient's troponin I is less than 0.012. IMPRESSION: 1. STATUS POST RIGHT FEMORAL NECK FRACTURE, STATUS POST SURGERY. 2. HYPERTENSION WELL CONTROLLED. 3. HYPOTHYROIDISM. 4. 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 At present the patient's cardiac status is stable. We will sign off. I have discussed with the family. I already discussed with Dr. Roche about the patient's admission here. We will discuss with Dr. Mcwilliams the hvac/r instructor and also we will discuss with the psychological operations. Also discussed with *------*. The patient may need to have an increased dose of steroids but will wait for the hvac/r instructor and psychological operations to call back. This has been discussed with Dr. Ochoa the hospitalist. Note, 30 minutes spent on this patient including discussions with the patient and the patient's family and also with the attending physicians taking care of the patient. Medications have been reviewed. Medical decision making is of high complexity in view of the patient's degenerating renal function although the patient is symptomatic and would require high dose of steroids to save her kidney, but we will wait for the hvac/r instructor and the psychological operations to give me direction as to which way to go. This has been discussed with them. We will sign off the case. DICTATING PHYSICIAN: SHERIN CANTU M.D. [id number] PHY#: [id number] ID: [id number] JOB#: [id number] ACCT: [id number] cc: >
== END 2017-10-19 15:45 | DRG 470 ==
LOC: ER 10:20 → OBSVTOIN 13:12 → INTOOBSV 13:12 → EH 13:12 → 4S 15:05
PROVIDERS: ADMIT Internal Medicine; ATTEND Internal Medicine
PROC: 0SRR0JZ Replacement of Right Hip Joint, Femoral Surface with Synthetic Substitute, Open Approach (ICD-10-PCS; principal; 2017-10-16 09:00)
DX: S72.001A Fracture of unspecified part of neck of right femur, initial encounter for closed fracture (principal); N39.0 Urinary tract infection, site not specified; N18.4 Chronic kidney disease, stage 4 (severe); I13.0 Hypertensive heart and chronic kidney disease with heart failure and stage 1 through stage 4 chronic kidney disease, or unspecified chronic kidney disease; M31.30 Wegener's granulomatosis without renal involvement; N28.9 Disorder of kidney and ureter, unspecified; I50.9 Heart failure, unspecified; D63.1 Anemia in chronic kidney disease; E03.9 Hypothyroidism, unspecified; R31.9 Hematuria, unspecified; E78.5 Hyperlipidemia, unspecified; K21.9 Gastro-esophageal reflux disease without esophagitis; R19.7 Diarrhea, unspecified; I25.10 Atherosclerotic heart disease of native coronary artery without angina pectoris; M19.90 Unspecified osteoarthritis, unspecified site; Z79.899 Other long term (current) drug therapy; Z88.8 Allergy status to other drugs, medicaments and biological substances; Z88.0 Allergy status to penicillin
CPT/HCPCS: 01210; 36415; 36430; 71045; 74176; 80048; 80053; 81001; 83880; 84439; 84443; 84481; 84484; 85025; 85027; 85652; 86140; 86850; 86900; 86901; 86920; 87040; 87086; 87088; 87186; 88304; 88311; 93005; 93010; 99284; C9290; G8978-GP; G8979-GP; G8987-GO; G8988-GO; J0131; J0330; J0744; J1170; J1644; J1720; J2250; J2270; J2405; J2704; J2930; J3010; J3490; J7030; J7120; J7512; J7517; P9016

== ENCOUNTER 2018-01-29 19:42 | Inpatient (IN) | payer MEDICARE, BC ==
[2018-01-29] MEDS ORDERED: KETOROLAC TROMETHAMINE INJ/PF 30 MG/1 ML SDV IV ONE (21:25)
[2018-01-29] MEDS ORDERED: NORMAL SALINE 1000 ML 1,000 ML IV ONE (21:25)
[2018-01-29] MEDS ORDERED: ACETAMINOPHEN 325 MG TABLET PO ONE (21:25)
--- NOTE | 2018-01-29 21:27 | ER Document Report ---
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 The family states that normally the patient is able to ambulate with a walker but over the past 48 hours she has become so weak she can hardly walk. They state that she has had similar symptoms in the past when she has had urinary tract infections or become severely dehydrated. Nothing seems to improve or worsen her symptoms. She was seen in [facility] approximately 1 week ago for the same was discharged home without clear etiology of her symptoms. The patient denies any focal abdominal pain, chest pain or shortness of breath, nausea, vomiting or syncope. TRAVEL OUTSIDE OF THE [place] IN LAST 30 DAYS: No - Related Data Allergies/Adverse Reactions: cephalexin monohydrate [From Keflex] Allergy (Intermediate, Verified 01/29/18 19 :44) Swelling of hands and/or feet codeine [Codeine] Allergy (Intermediate, Verified 01/29/18 19:44) VOMITING Penicillins Allergy (Intermediate, Verified 01/29/18 19:44) Swelling of hands and/or feet Past Medical History - General Information source: Patient, Relative - Social History Smoking Status: Never Smoker Chew tobacco use (# tins/day): Yes Frequency of alcohol use: None Drug Abuse: None Lives with: Family Family History: Reviewed & Not Pertinent Patient has suicidal ideation: No Patient has homicidal ideation: No - Past Medical History Cardiac Medical History: Reports: Hx Congestive Heart Failure, Hx Coronary Artery Disease - high chol , Hx Hypercholesterolemia, Hx Hypertension Pulmonary Medical History: Reports: Hx Bronchitis Neurological Medical History: Denies: Hx Migraine, Hx Seizures Endocrine Medical History: Reports: Hx Hypothyroidism Renal/ Medical History: Denies: Hx Peritoneal Dialysis GI Medical History: Reports: Hx Gastroesophageal Reflux Disease Musculoskeltal Medical History: Reports Hx Arthritis Past Surgical History: Denies: Hx Hysterectomy - Immunizations Hx Diphtheria, Pertussis, Tetanus Vaccination: Yes Review of Systems - Review of Systems Notes: Constitutional: Negative for fever. HENT: Negative for sore throat. Eyes: Negative for visual changes. Cardiovascular: Negative for chest pain. Respiratory: Negative for shortness of breath. Gastrointestinal: Positive for anorexia nausea Genitourinary: Positive for bilateral flank tenderness and dysuria Musculoskeletal: Negative for back pain. Skin: Negative for rash. Neurological: Negative for headaches, weakness or numbness. 10 point ROS negative except as marked above and in HPI. Physical Exam - Vital signs Vitals: Temp Pulse Resp BP Pulse Ox 97.4 F 97 16 97/48 L 95 01/29/18 19:54 01/29/18 19:54 01/29/18 19:54 01/29/18 19:54 01/29/18 19:54 Interpretation: Hypotensive Notes: PHYSICAL EXAMINATION: GENERAL: Frail, mildly lethargic but responds appropriately to questions. HEAD: Atraumatic, normocephalic. EYES: Pupils equal round and reactive to light, extraocular movements intact, sclera anicteric, conjunctiva are normal. ENT: nares patent, oropharynx clear without exudates. Moderately dry mucous membranes. NECK: Normal range of motion, supple without lymphadenopathy LUNGS: Breath sounds clear to auscultation bilaterally and equal. No wheezes rales or rhonchi. HEART: Regular rate and rhythm without murmurs ABDOMEN: Soft, nontender, normoactive bowel sounds. No guarding, no rebound. No masses appreciated. Bilateral CVA tenderness. EXTREMITIES: Normal range of motion, no pitting or edema. No cyanosis. NEUROLOGICAL: No focal neurological deficits. Moves all extremities spontaneously and on command. PSYCH: Normal mood, normal affect. SKIN: Warm, Dry, normal turgor, no rashes or lesions noted. Course - Re-evaluation Re-evalutation: 01/29/18 21:26 Patient presents with bilateral CVA tenderness, fatigue, increasing difficulty even walking over the last 1 week. She appears frail, somewhat cachectic, has bilateral CVA tenderness on examination. Examination is also notable for a dry , nonproductive cough. Vitals within normal limits. The patient does appear visibly tired and somewhat lethargic. Will obtain labs, provide IV fluids, pain control and reassess the patient. 01/29/18 23:43 Laboratory show findings consistent with worsening acute on chronic renal failure with an associated pyelonephritis. This would clinically explain the patient's bilateral CVA tenderness as well as her dehydration and overall generalized weakness. Patient will receive IV cefepime, family reports that the cephalexin allergy is "not likely real". Patient is responding well to IV fluids, states she feels somewhat better. Will discuss with the hospitalist for admission. - Vital Signs Vital signs: Temp Pulse Resp BP Pulse Ox 97.4 F 97 14 111/65 99 01/29/18 19:54 01/29/18 19:54 01/29/18 20:41 01/29/18 20:41 01/29/18 20:41 - Laboratory Result Diagrams: 01/29/18 20:40 01/29/18 20:40 Laboratory results interpreted by me: 01/29/18 01/29/18 01/29/18 20:15 20:40 20:40 WBC 2.1 L RBC 2.98 L Hgb 8.4 L Hct 25.4 L RDW 14.3 H Plt Count 72 L Seg Neutrophils % 87.1 H Lymphocytes % 8.5 L Absolute Lymphocytes 0.2 L VBG HCO3 19.9 L Sodium 133.1 L Carbon Dioxide 19 L BUN 87 H Creatinine 3.78 H Est GFR ( Amer) 14 L Est GFR (Non-Af Amer) 11 L Glucose 149 H AST 13 L Total Protein 4.5 L Albumin 2.6 L Urine Blood Ur Leukocyte Esterase 01/29/18 21:57 WBC RBC Hgb Hct RDW Plt Count Seg Neutrophils % Lymphocytes % Absolute Lymphocytes VBG HCO3 Sodium Carbon Dioxide BUN Creatinine Est GFR ( Amer) Est GFR (Non-Af Amer) Glucose AST Total Protein Albumin Urine Blood SMALL H Ur Leukocyte Esterase LARGE H Discharge - Discharge Clinical Impression: Santacruz syndrome, Pyelonephritis Acute on chronic renal failure Qualifiers: Acute renal failure type: unspecified Chronic kidney disease stage: unspecified stage Qualified Code(s): N17.9 - Acute kidney failure, unspecified; N18.9 - Chronic kidney disease, unspecified; N18.9 - Chronic kidney disease, unspecified Condition: Fair Disposition: ADMITTED INPATIENT Admitting Provider: Hospitalist Unit Admitted: Medical Floor Referrals: LISA TODD MD [Primary Care Provider] - Follow up as needed
[2018-01-29 21:44] LABS: ABSOLUTE LYMPHOCYTES (AUTO) 0.2 10^3/uL (0.5-4.7); ABSOLUTE MONOCYTES (AUTO) 0.1 10^3/uL (0.1-1.4); ABSOLUTE NEUT (AUTO) 1.9 10^3/uL (1.7-8.2); BASOPHILS % (AUTO) 0.2 % (0-2); EOSINOPHILS % (AUTO) 0.1 % (0-6); HEMATOCRIT 25.4 % (36.0-47.0); HEMOGLOBIN 8.4 g/dL (12.0-15.5); LYMPHOCYTES % (AUTO) 8.5 % (13-45); MEAN CORPUSCULAR HEMOGLOBIN 28.1 pg (27.0-33.4); MEAN CORPUSCULAR HGB CONC 32.9 g/dL (32.0-36.0); MEAN CORPUSCULAR VOLUME 85 fl (80-97); MONOCYTES % (AUTO) 4.1 % (3-13); RED BLOOD COUNT 2.98 10^6/uL (3.72-5.28); RED CELL DISTRIBUTION WIDTH 14.3 % (11.5-14.0); SEGMENTED NEUTROPHILS % (AUTO) 87.1 % (42-78); TOTAL CELLS COUNTED % (AUTO) 100 %; WHITE BLOOD COUNT 2.1 10^3/uL (4.0-10.5)
[2018-01-29 21:47] LABS: ALANINE AMINOTRANSFERASE 28 U/L (9-52); ALBUMIN 2.6 g/dL (3.5-5.0); ALKALINE PHOSPHATASE 55 U/L (38-126); ANION GAP 13 (5-19); ASPARTATE AMINO TRANSFERASE 13 U/L (14-36); BILIRUBIN,DIRECT 0.2 mg/dL (0.0-0.4); BILIRUBIN,TOTAL 0.2 mg/dL (0.2-1.3); BLOOD UREA NITROGEN 87 mg/dL (7-20); CALCIUM 8.5 mg/dL (8.4-10.2); CARBON DIOXIDE 19 mmol/L (22-30); CHLORIDE 101 mmol/L (98-107); GLUCOSE 149 mg/dL (75-110); POTASSIUM 4.3 mmol/L (3.6-5.0); SODIUM 133.1 mmol/L (137-145); TOTAL PROTEIN 4.5 g/dL (6.3-8.2)
[2018-01-29 22:06] LABS: PLATELET COUNT 72 10^3/uL (150-450)
[2018-01-29 22:28] LABS: VENOUS BLOOD BASE EXCESS -5.2 mmol/L; VENOUS BLOOD HCO3 19.9 mmol/L (20-32); VENOUS BLOOD PCO2 37.1 mmHg (35-63); VENOUS BLOOD PH 7.35 (7.30-7.42)
[2018-01-29 22:31] LABS: APPEARANCE,URINE TURBID; BILIRUBIN,URINE NEGATIVE (NEGATIVE); COLOR,URINE YELLOW; GLUCOSE, URINE NEGATIVE (NEGATIVE); KETONES,URINE NEGATIVE (NEGATIVE); LEUKOCYTE ESTERASE,URINE LARGE (NEGATIVE); NITRITE,URINE NEGATIVE (NEGATIVE); PROTEIN,URINE NEGATIVE (NEGATIVE); URINE SPECIFIC GRAVITY 1.011; UROBILINOGEN,URINE NEGATIVE mg/dL (<2.0)
[2018-01-29] MEDS ORDERED: CEFEPIME 2 GM/D5W RTU 2 GM/50 ML RTUPB IV ONE (22:50)
--- NOTE | 2018-01-29 23:53 | RADIOLOGY REPORT (SQ) ---
EXAM DESCRIPTION: CHEST SINGLE VIEW COMPLETED DATE/TIME: 01/29/2018 11:36 pm REASON FOR STUDY: cough, sob COMPARISON: 10/15/2017 EXAM PARAMETERS: NUMBER OF VIEWS: One view. TECHNIQUE: Single frontal radiographic view of the chest acquired. RADIATION DOSE: NA LIMITATIONS: None. FINDINGS: LUNGS AND PLEURA: No acute opacities, masses or pneumothorax. No pleural effusion. MEDIASTINUM AND HILAR STRUCTURES: Stable. HEART AND VASCULAR STRUCTURES: Heart normal in size. Normal vasculature. BONES: No acute findings. HARDWARE: None in the chest. OTHER: No other significant finding. IMPRESSION: NO ACUTE RADIOGRAPHIC FINDING IN THE CHEST. TECHNICAL DOCUMENTATION: JOB ID: [id number] 2010 [employer]- All Rights Reserved Reading location - IP/workstation name: [email or web address]
--- NOTE | 2018-01-29 23:54 | RADIOLOGY REPORT (SQ) ---
EXAM DESCRIPTION: PELVIS AP COMPLETED DATE/TIME: 01/29/2018 11:36 pm REASON FOR STUDY: right hip pain COMPARISON: None. NUMBER OF VIEWS: One view TECHNIQUE: AP Pelvis LIMITATIONS: None. FINDINGS: No fracture or dislocation. Right total hip arthroplasty. Bony pelvis is intact. OTHER: No other significant finding. IMPRESSION: No fracture or dislocation. Right total hip arthroplasty. Bony pelvis is intact. TECHNICAL DOCUMENTATION: JOB ID: [id number] 2010 [employer]- All Rights Reserved Reading location - IP/workstation name: [email or web address]
[2018-01-30] MEDS ORDERED: DEXTROSE 5%-1/2 NORMAL SALINE 1,000 ML IV PRN (01:48)
[2018-01-30] MEDS ORDERED: ACETAMINOPHEN 325 MG TABLET PO PRN ×2 (01:48→15:29)
[2018-01-30] MEDS ORDERED: PROMETHAZINE HCL INJ 25 MG/1 ML VIAL IV PRN ×2 (01:48→15:30)
[2018-01-30] MEDS ORDERED: CEFEPIME 2 GM/D5W RTU 2 GM/50 ML RTUPB IV ONE (02:45)
[2018-01-30] MEDS ORDERED: CEFEPIME 1 GM/D5W RTU 2 GM/100 ML RTUPB IV ONE (02:50)
[2018-01-30] MEDS ORDERED: PIPERACILLIN/TAZOBACTAM 2.25 GM VIAL IV PRN (04:36)
--- NOTE | 2018-01-30 05:21 | PDOC H&P ---
History of Present Illness Admission Date/PCP: 01/29/18 23:49 LISA TODD MD Patient complains of: Persistent lower back pain and generalized weakness for the last 4 days per family. History of Present Illness: JAMIN JEAN-BAPTISTE is a 82 year old female with history of Min's vasculitis , CKD stage IV and hypertension was admitted with above-mentioned complaints. The history was obtained from her son and [id number] at bedside. According to her family, the patient has been complainig of generalized weakness for the last few days and poor appetite. She also has been having dyspnea on exertion for several weeks. She was seen at [facility] on 2017 where blood work was done in addition to a chest x-ray. And given negative workup, the patient was given 1 L of normal saline thinking that she could be dehydrated and she was discharged home. Her son was out of town today and came to visit her after 7 PM. His brother told him that she was very weak when he tried to get her up at around 2 PM. She also had diarrhea x1 episode with loose, nonbloody stool. The patient has been complaining of intermittent crampy abdominal pain and nausea when she tries to eat but no vomiting. She denied any fever or urinary symptoms but she always has chills. She has been having a productive cough of clear sputum for the last month with dyspnea on exertion for the last 2 weeks, no sick contact. She apparently had 2 courses of antibiotics started by her PCP and has been having intermittent diarrhea since then. She reportedly was checked for C. difficile and it was negative per family. She has chronic lower back pain which is exacerbated by coughing. She also was complaining of right hip pain lately. She is post right hip replacement in October 2017 and she usually ambulates using a walker and she has a home care nurse [id number]. In the ED, her temperature was 97.4, heart rate 97, respiratory rate 16, blood pressure 97/48 with oxygen saturation of 95% on room air. Her WBC was 2.1 with hemoglobin of 8.4 and platelets of 72. Her BUN/creatinine was 87/3.78 with blood glucose of 149. Chest x-ray and right hip x-ray were done both of which were unremarkable. She received 2 g cefepime 1, 1 L normal saline 1 and 15 mg Toradol 1. Past Medical History Medical History: Other - According to the patient's family and based on previous records. Cardiac Medical History: Reports: Congestive Heart Failure, Hyperlipidema, Hypertension Pulmonary Medical History: Reports: Bronchitis, Other - Kenneth's vasculitis. Neurological Medical History: Denies: Migraine, Seizures Endocrine Medical History: Reports: Hypothyroidism GI Medical History: Reports: Gastroesophageal Reflux Disease Musculoskeltal Medical History: Reports: Arthritis Hematology: Reports: Anemia Past Surgical History Past Surgical History: Reports: Hip Replacement, Other - right hip Denies: Hysterectomy Social History Lives with: Family Smoking Status: Never Smoker Frequency of Alcohol Use: None Hx Recreational Drug Use: No Drugs: None Hx Prescription Drug Abuse: No - Advance Directive Resuscitation Status: Full Code Family History Parental Family History Reviewed: Yes - No family history of cardiac disease or diabetes per her son. Children Family History Reviewed: No Sibling(s) Family History Reviewed.: Yes Medication/Allergy Home Medications: Amlodipine Besylate 5 mg PO DAILY 10/15/17 Cholecalciferol (Vitamin D3) [Vitamin D3 2000 unit Tablet] 2,000 unit PO DAILY 10/15/17 Cyclosporine 0.05% Oph Emulsio [Restasis 0.05% Oph Emulsion Pf 0.4 ml] 1 drop OU BID 10/15/17 Furosemide [Lasix 40 mg Tablet] 40 mg PO BID 10/15/17 Latanoprost [Xalatan 0.005% Oph Soln 2.5 ml] 1 drop OU QHS 10/15/17 Levothyroxine Sodium [Synthroid 0.075 mg Tablet] 0.075 mg PO DAILY 10/15/17 Mycophenolate Mofetil 250 mg PO BID 10/15/17 Prednisone 2.5 mg PO TID 10/15/17 Simvastatin 20 mg PO QHS 10/15/17 Tamsulosin HCl 0.4 mg PO QHS 10/15/17 Docusate Sodium [Colace 100 mg Capsule] 100 mg PO DAILY capsule 10/19/17 Oxycodone HCl [Oxy-Ir 5 mg Tablet] 5 mg PO Q4HP PRN #20 tablet 10/19/17 Rivaroxaban [Xarelto 10 mg Tablet] 10 mg PO QHS #30 tablet 10/19/17 Allergies/Adverse Reactions: cephalexin monohydrate [From Keflex] Allergy (Intermediate, Verified 01/30/18 04 :34) Swelling of hands and/or feet codeine [Codeine] Allergy (Intermediate, Verified 01/29/18 19:44) VOMITING Penicillins Allergy (Intermediate, Verified 01/30/18 04:34) Swelling of hands and/or feet Review of Systems ROS unobtainable: Other - Pertinent positives and negatives as detailed in the HPI. Physical Exam Vital Signs: Temp Pulse Resp BP Pulse Ox 97.4 F 97 14 111/65 99 01/29/18 19:54 01/29/18 19:54 01/29/18 20:41 01/29/18 20:41 01/29/18 20:41 General appearance: PRESENT: no acute distress, well-developed, well-nourished Head exam: PRESENT: atraumatic, normocephalic Eye exam: PRESENT: PERRLA Mouth exam: PRESENT: moist, neck supple Neck exam: PRESENT: full ROM. ABSENT: JVD Respiratory exam: PRESENT: decreased breath sounds, rhonchi. ABSENT: rales, wheezes Cardiovascular exam: PRESENT: RRR, +S1, +S2 Pulses: PRESENT: normal dorsalis pedis pul GI/Abdominal exam: PRESENT: normal bowel sounds, soft. ABSENT: distended, rebound, tenderness Rectal exam: PRESENT: deferred Extremities exam: PRESENT: pedal edema, +2 edema - left more than right ( chronically). Neurological exam: PRESENT: alert, altered, oriented to person, oriented to place, oriented to time, CN II-XII grossly intact - except CNVIII.. ABSENT: motor sensory deficit Skin exam: PRESENT: dry, warm, other - skin echymosis right [place] and bruising on knees, thigh and bilateral arms.. ABSENT: rash Results Laboratory Results: CBC: WBC 2.1, hemoglobin 8.4, hematocrit 25.4, MCV 85, RDW 14.3, platelets 72. CMP: Sodium 133, potassium 4.3, chloride 101, bicarb 19, anion gap 13, BUN 87, creatinine 3.78 (88/3.23 on 10/18/2017), blood glucose 1 blood glucose 146 lactic acid 0.9. UA positive. Impressions: Chest X-Ray 01/29/18 21:24 IMPRESSION: NO ACUTE RADIOGRAPHIC FINDING IN THE CHEST. Pelvis X-Ray 01/29/18 21:24 IMPRESSION: No fracture or dislocation. Right total hip arthroplasty. Bony pelvis is intact. Assessment & Plan - Diagnosis (1) Sepsis Qualifiers: Sepsis type: sepsis due to unspecified organism Qualified Code(s): A41.9 - Sepsis, unspecified organism Is this a current diagnosis for this admission?: Yes Plan: by criteria given leukopenia and heart rate of 97 in the setting of UTI. Lactic acid 0.9. The patient does not look clinically septic though. Will start Zosyn after reviewing her most recent urine cultures which grew 2 different kind of Pseudomonas aeruginosa (of note, her son said that she is not allergic to penicillin). Will follow up septic workup and repeat lactic acid. Will also check stool for C. difficile given intermittent diarrhea and recent antibiotics. (2) Acute on chronic renal failure Qualifiers: Acute renal failure type: unspecified Chronic kidney disease stage: unspecified stage Qualified Code(s): N17.9 - Acute kidney failure, unspecified ; N18.9 - Chronic kidney disease, unspecified; N18.9 - Chronic kidney disease, unspecified Is this a current diagnosis for this admission?: Yes Plan: With chronic kidney disease stage IV (secondary to Min's vasculitis). The patient follows with Dr. Mcwilliams in [place]. UA positive. We will follow-up kidney function and urine output and avoid nephrotoxic medications. Will continue Zosyn for now. (3) Pancytopenia Is this a current diagnosis for this admission?: Yes Plan: Possible bone marrow suppression secondary to sepsis. The patient is on mycophenolate which was increased from 250 mg twice a day to 500 mg twice a day on 12/07/2017 (held now). Nephrology may need to be consulted. (4) Generalized weakness Is this a current diagnosis for this admission?: Yes Plan: Secondary to poor oral intake and/or infection. Will continue management as per #1. Will also check a TSH and B12. (5) Essential hypertension Is this a current diagnosis for this admission?: Yes Plan: Controlled. Will continue to monitor her blood pressure and restart BP medications as indicated. (6) Chronic lower back pain Qualifiers: Back pain laterality: unspecified Is this a current diagnosis for this admission?: Yes Plan: The patient had right hip fracture secondary to osteoporosis. She is on chronic prednisone 20 mg daily. She is also on Vitamin D 2000 international units daily. Further management can be done as outpatient. (7) Dyspnea Qualifiers: Dyspnea type: dyspnea on exertion Qualified Code(s): R06.09 - Other forms of dyspnea Is this a current diagnosis for this admission?: Yes Plan: Attributed to Min's vasculitis. Chest x-ray reviewed. The patient follows with cardiology as outpatient per her son. Will cycle cardiac enzymes, and check proBNP and D dimer, twelve-lead EKG and echocardiogram. - Time Time Spent: Greater than 70 Minutes - Inpatient Certification Based on my medical assessment, after consideration of the patient's comorbidities, presenting symptoms, or acuity I expect that the services needed warrant INPATIENT care.: Yes I certify that my determination is in accordance with my understanding of Medicare's requirements for reasonable and necessary INPATIENT services [42 CFR 412.3e].: Yes
[2018-01-30] MEDS: HEPARIN SOD (PORCINE) 5,000 UNIT/ML 1 ML SYRINGE SUBCUT SCH ×3 (06:00→22:43)
[2018-01-30 08:28] LABS: INTERNATIONAL RATION (INR) 1.06; PROTHROMBIN TIME 14.3 SEC (11.4-15.4)
[2018-01-30 08:31] LABS: D-DIMER 2.75 ug/mL (0.00-0.50)
[2018-01-30 08:36] LABS: FIBRINOGEN 131 mg/dL (209-497)
[2018-01-30 08:41] LABS: ALANINE AMINOTRANSFERASE 28 U/L (9-52); ALBUMIN 2.2 g/dL (3.5-5.0); ALKALINE PHOSPHATASE 46 U/L (38-126); ANION GAP 12 (5-19); ASPARTATE AMINO TRANSFERASE 13 U/L (14-36); BILIRUBIN,DIRECT 0.2 mg/dL (0.0-0.4); BILIRUBIN,TOTAL 0.2 mg/dL (0.2-1.3); BLOOD UREA NITROGEN 86 mg/dL (7-20); CALCIUM 8.1 mg/dL (8.4-10.2); CARBON DIOXIDE 19 mmol/L (22-30); CHLORIDE 104 mmol/L (98-107); GLUCOSE 131 mg/dL (75-110); PHOSPHORUS 4.6 mg/dL (2.5-4.5); POTASSIUM 3.6 mmol/L (3.6-5.0); TOTAL PROTEIN 4.1 g/dL (6.3-8.2)
[2018-01-30] MEDS ORDERED: OXYCODONE-ACETAMINOPHEN 5-325 MG TABLET PO PRN (10:06)
[2018-01-30 10:46] LABS: HEMATOCRIT 21.6 % (36.0-47.0); MEAN CORPUSCULAR HEMOGLOBIN 27.4 pg (27.0-33.4); MEAN CORPUSCULAR VOLUME 86 fl (80-97); RED BLOOD COUNT 2.53 10^6/uL (3.72-5.28); RED CELL DISTRIBUTION WIDTH 14.3 % (11.5-14.0)
[2018-01-30] MEDS: LACTOBACILLUS ACIDOPHILUS 250 MG TAB PO SCH ×2 (11:00→17:41)
[2018-01-30] MEDS: MORPHINE SULFATE 10 MG/ML INJ IV PRN ×2 (11:00→18:51)
[2018-01-30 11:17] LABS: HEMOGLOBIN 6.9 g/dL (12.0-15.5)
[2018-01-30 11:18] LABS: PLATELET COUNT 66 10^3/uL (150-450)
[2018-01-30 11:19] LABS: WHITE BLOOD COUNT 1.4 10^3/uL (4.0-10.5)
[2018-01-30] MEDS ORDERED: NORMAL SALINE 250 ML IV PRN ×2 (11:20)
[2018-01-30] MEDS ORDERED: PSYLLIUM SEED-SF 5.85 GM PACKET PO ONE ×2 (11:30→16:15)
--- NOTE | 2018-01-30 12:08 | RADIOLOGY REPORT (SQ) ---
EXAM DESCRIPTION: CT ABD/PELVIS NO ORAL OR IV COMPLETED DATE/TIME: 01/30/2018 11:09 am REASON FOR STUDY: left CV tenderness COMPARISON: 10/15/2017. TECHNIQUE: CT scan of the abdomen and pelvis performed without intravenous or oral contrast. Images reviewed with lung, soft tissue, and bone windows. Reconstructed coronal and sagittal MPR images revi ewed. All images stored on PACS. All CT scanners at this facility use dose modulation, iterative reconstruction, and/or weight based d osing when appropriate to reduce radiation dose to as low as reasonably achievable (ALARA). [facility]: Dose Right [facility]: CareDose [facility]: Dose Right [facility]: Teradose 4D [facility]: Smart [employer] RADIATION DOSE: CT Rad equipment meets quality standard of care and radiation dose reduction techniq ues were employed. CTDIvol: 4.4 mGy. DLP: 213 mGy-cm.mGy. LIMITATIONS: Beam hardening artifact related to a right hip replacement. This partially obscures th e pelvic tissues. FINDINGS: LOWER CHEST: No significant findings. No nodules or infiltrates. NON-CONTRASTED LIVER, SPLEEN, ADRENALS: Evaluation limited by lack of IV contrast. No identified sign ificant masses. PANCREAS: No masses. No peripancreatic inflammatory changes. GALLBLADDER: Mildly distended. Tiny stones or milk of calcium. No wall thickening or surrounding fl uid. No duct dilatation. RIGHT KIDNEY AND URETER: No solid masses. No significant calcification. No hydronephrosis or hydroure ter. LEFT KIDNEY AND URETER: Tiny inferior pole nonobstructing punctate calcification. No gross mass. No ureteral stones. AORTA AND RETROPERITONEUM: Atherosclerotic but normal caliber. BOWEL AND PERITONEAL CAVITY: Sigmoid diverticulosis. No clear active inflammatory changes. No mecha nical bowel obstruction. Surgical clips and sutures along the proximal colon. No ascites or abnorma l gas. APPENDIX: Surgically absent. PELVIS, BLADDER, AND ABDOMINAL WALL:Partially obscured by right hip replacement artifact. No gross m ass or fluid. Mild abdominal wall ventral laxity at and below the umbilicus. Small fat containing s upraumbilical hernia. BONES: Bilateral L5 pars defects with grade 2 listhesis at the lumbosacral junction. Osteopenic. Un changed T11 compression fracture. OTHER: No other significant finding. IMPRESSION: 1. No acute or suspicious abdominopelvic abnormality. Specifically, no evidence of urin jon tract obstruction. 2. Mild cholelithiasis. 3. Distal colonic diverticulosis without CT sugges tion of active diverticulitis. Please note: The pelvis is partially obscured by artifact. Do ellen ng on clinical presentation, mild diverticulitis could still be present. TECHNICAL DOCUMENTATION: JOB ID: [id number] Quality ID # [id number]: Final reports with documentation of one or more dose reduction techniques (e.g., Au tomated exposure control, adjustment of the mA and/or kV according to patient size, use of iterative reconstruction technique) 2010 [employer]- All Rights Reserved Reading location - IP/workstation name: [email or web address]
--- NOTE | 2018-01-30 12:14 | RADIOLOGY REPORT (SQ) ---
EXAM DESCRIPTION: MRI LUMBAR SPINE WITHOUT COMPLETED DATE/TIME: 01/30/2018 11:52 am REASON FOR STUDY: lower back pain COMPARISON: None. TECHNIQUE: Sagittal and Axial imaging includes T1, T2, STIR and gradient echo sequences. Coronal T2/ HASTE imaging. LIMITATIONS: Motion. FINDINGS: VISUALIZED UPPER ABDOMEN: Limited evaluation. No acute or suspicious findings suggested. SEGMENTATION: No transitional anatomy. The lowest well-developed disc space is labeled L5-S1. ALIGNMENT: Grade 1 spondylolisthesis L5-S1. VERTEBRAE: Chronic compression fracture T11. Mild retropulsion. BONE MARROW: Normal. No marrow replacement or reactive changes. DISC SIGNAL: Desiccation multiple levels. POSTERIOR ELEMENTS: Spondylolysis L5-S1. HARDWARE: None in the spine. CORD AND CONUS: Normal in size and signal intensity. Conus at the appropriate level. SOFT TISSUES: No aortic aneurysm seen. No bulky retroperitoneal adenopathy or mass. No paraspinal mas s or fluid. L1-L2: No significant spinal stenosis or exit foraminal stenosis. L2-L3: Mild spinal stenosis due to disc bulge. L3-L4: Mild spinal stenosis due to disc bulge. L4-L5: Mild spinal stenosis due to disc bulge. Mild facet arthropathy. L5-S1: Mild spinal stenosis due to small central disc herniation and facet arthropathy. Disc materia l contacts both exiting nerve roots. LOWER THORACIC: Incompletely imaged. Mild spinal stenosis T10-11. SACRUM: Visualized upper sacrum intact. OTHER: No other significant findings. IMPRESSION: Spondylosis and facet arthropathy. Grade 1 spondylolisthesis and spondylolysis L4- 5. Mild spinal stenosis at multiple levels. Neural foraminal stenosis L5-S1. TECHNICAL DOCUMENTATION: JOB ID: [id number] [employer]- All Rights Reserved Reading location - IP/workstation name: [email or web address]
[2018-01-30] MEDS: PIPERACILLIN SODIUM/TAZOBACTAM 2.25 GM in NORMAL SALINE 50 ML IV SCH ×2 (13:16→19:58)
--- NOTE | 2018-01-30 13:24 | EKG REPORT ---
SEVERITY:- BORDERLINE ECG - SINUS RHYTHM BORDERLINE T WAVE ABNORMALITIES : Confirmed by: Geoff Mills MD 30-Jan-2018 13:23:26
[2018-01-30] MEDS: METRONIDAZOLE 500 MG/NS RTU 100 ML IV SCH ×2 (14:11→20:51)
[2018-01-30] MEDS: ALBUTEROL SULFATE 0.083% NEB 2.5 MG/3 ML AMPUL NEB PRN (14:23)
--- NOTE | 2018-01-30 14:38 | EKG REPORT ---
SEVERITY:- BORDERLINE ECG - SINUS RHYTHM BORDERLINE T WAVE ABNORMALITIES : Confirmed on behalf of: Geoff Mills MD 30-Jan-2018 14:38:16
--- NOTE | 2018-01-30 15:56 | PDOC PROGRESS REPORT ---
Subjective Progress Note for:: 01/30/18 Subjective:: Patient complains of lower back pain. Daughter is at bedside and states that her mother had not been feeling well for a couple of days and had been weak. Review of system All organ systems evaluated and negative except as in subjective All significant laboratories and diagnostics have been reviewed Reason For Visit: SEPSIS/UTI Physical Exam Vital Signs: Temp Pulse Resp BP Pulse Ox 97.5 F 98 21 H 135/62 H 97 01/30/18 07:56 01/30/18 07:56 01/30/18 07:56 01/30/18 07:56 01/30/18 07:56 Intake & Output 01/29/18 01/30/18 01/31/18 06:59 06:59 06:59 Weight 52.163 kg General appearance: PRESENT: cooperative, mild distress, well-developed, well- nourished Head exam: PRESENT: atraumatic, normocephalic Eye exam: PRESENT: conjunctiva pale, EOMI, PERRLA Ear exam: PRESENT: normal external ear exam Mouth exam: PRESENT: dry mucosa Neck exam: PRESENT: full ROM. ABSENT: JVD, lymphadenopathy, tenderness Respiratory exam: PRESENT: decreased breath sounds, rhonchi Cardiovascular exam: PRESENT: RRR. ABSENT: diastolic murmur, systolic murmur Vascular exam: PRESENT: normal capillary refill GI/Abdominal exam: PRESENT: normal bowel sounds, soft, tenderness Extremities exam: PRESENT: full ROM, pedal edema Musculoskeletal exam: PRESENT: ambulatory Neurological exam: PRESENT: alert, awake, oriented to person, oriented to place , oriented to time, oriented to situation, CN II-XII grossly intact Psychiatric exam: PRESENT: depressed Skin exam: PRESENT: pallor Results Laboratory Results: 01/30/18 07:40 01/30/18 01/30/18 01/30/18 07:40 07:40 07:40 Sodium 135.0 L Potassium 3.6 Chloride 104 Carbon Dioxide 19 L Anion Gap 12 BUN 86 H Creatinine 3.55 H Est GFR ( Amer) 15 L Est GFR (Non-Af Amer) 12 L Glucose 131 H Lactic Acid Calcium 8.1 L Phosphorus 4.6 H Magnesium 1.8 Total Bilirubin 0.2 AST 13 L ALT 28 Alkaline Phosphatase 46 Total Protein 4.1 L Albumin 2.2 L Vitamin B12 949.0 H 01/30/18 07:40 Sodium Potassium Chloride Carbon Dioxide Anion Gap BUN Creatinine Est GFR ( Amer) Est GFR (Non-Af Amer) Glucose Lactic Acid 1.6 Calcium Phosphorus Magnesium Total Bilirubin AST ALT Alkaline Phosphatase Total Protein Albumin Vitamin B12 01/30/18 07:40 Troponin I < 0.012 Impressions: Chest X-Ray 01/29/18 21:24 IMPRESSION: NO ACUTE RADIOGRAPHIC FINDING IN THE CHEST. Pelvis X-Ray 01/29/18 21:24 IMPRESSION: No fracture or dislocation. Right total hip arthroplasty. Bony pelvis is intact. Assessment & Plan - Diagnosis (1) Acute on chronic renal failure Qualifiers: Acute renal failure type: unspecified Chronic kidney disease stage: unspecified stage Qualified Code(s): N17.9 - Acute kidney failure, unspecified ; N18.9 - Chronic kidney disease, unspecified; N18.9 - Chronic kidney disease, unspecified Is this a current diagnosis for this admission?: Yes Plan: Likely due to an element of volume contraction. We will continue with IV fluids and trend BMP (2) Pancytopenia Is this a current diagnosis for this admission?: Yes Plan: Likely due to tacrolimus. This medication has been held on admission. Patient will be transfused and will trend CBC. Consult game bird farmer real estate economist (3) Sepsis Qualifiers: Sepsis type: sepsis due to unspecified organism Qualified Code(s): A41.9 - Sepsis, unspecified organism Is this a current diagnosis for this admission?: Yes Plan: Likely source is urinary tract. Will continue present management (4) Anemia Qualifiers: Anemia type: due to chronic kidney disease Chronic kidney disease stage: stage 4 (severe) Qualified Code(s): N18.4 - Chronic kidney disease, stage 4 ( severe); D63.1 - Anemia in chronic kidney disease; D63.1 - Anemia in chronic kidney disease Is this a current diagnosis for this admission?: Yes Plan: There is an acute blood loss which likely relates to immunosuppressive patient. Patient will be transfused (5) CHF (congestive heart failure) Qualifiers: Qualified Code(s): I50.9 - Heart failure, unspecified Is this a current diagnosis for this admission?: Yes Plan: Chronic diastolic. Will watch for decompensation. Not a factor in this hospitalization for now (6) Urinary tract infection Qualifiers: Hematuria presence: with hematuria Is this a current diagnosis for this admission?: Yes Plan: Order urine in and out she is concerned about contamination. Continue current management in the meantime (7) Diarrhea Qualifiers: Diarrhea type: unspecified type Qualified Code(s): R19.7 - Diarrhea, unspecified Is this a current diagnosis for this admission?: Yes Plan: To place patient on probiotics, Metamucil and will try IV Flagyl even though C. difficile was negative (8) Back pain Qualifiers: Back pain location: low back pain Back pain laterality: left Sciatica presence: unspecified whether sciatica present Is this a current diagnosis for this admission?: Yes Plan: Order MRI of the lumbar spine. Start patient on low-dose Zanaflex and order Percocet - Time Time Spent with patient: 15-24 minutes Medications reviewed and adjusted accordingly: Yes Anticipated discharge: Home with Homehealth Within: Other - Unable to determine at this time - Inpatient Certification Based on my medical assessment, after consideration of the patient's comorbidities, presenting symptoms, or acuity I expect that the services needed warrant INPATIENT care.: Yes I certify that my determination is in accordance with my understanding of Medicare's requirements for reasonable and necessary INPATIENT services [42 CFR 412.3e].: Yes Medical Necessity: Significant Comorbidiites Make Outpatient Treatment Too Risky , Need Close Monitoring Due to Risk of Patient Decompensation, Need For IV Fluids, Need for IV Antibiotics
[2018-01-30] MEDS: TIZANIDINE HCL 4 MG TABLET PO SCH (17:41)
[2018-01-30] MEDS ORDERED: ONDANSETRON HCL INJ/PF 4 MG/2 ML SDV IV PRN (18:07)
--- NOTE | 2018-01-30 19:44 | EKG REPORT ---
SEVERITY:- BORDERLINE ECG - SINUS RHYTHM BORDERLINE T ABNORMALITIES, INFERIOR LEADS : Confirmed by: Geoff Mills MD 30-Jan-2018 19:42:58
[2018-01-30] MEDS ORDERED: (PENDING PHARMACY ID) (Simvastatin [Simvastatin] 20 MG) PO SCH (22:00)
[2018-01-30] MEDS: FAMOTIDINE 20 MG TABLET PO SCH (22:49)
[2018-01-30] MEDS: TAMSULOSIN HCL 0.4 MG CAP.SR.24H PO SCH (22:49)
[2018-01-30] MEDS: SIMVASTATIN 10 MG TABLET PO SCH (22:50)
[2018-01-30] MEDS: LATANOPROST 0.005% OPH SOLN 2.5 ML OU SCH (22:50)
[2018-01-31] MEDS: MORPHINE SULFATE 10 MG/ML INJ IV PRN (02:09)
[2018-01-31] MEDS: PIPERACILLIN SODIUM/TAZOBACTAM 2.25 GM in NORMAL SALINE 50 ML IV SCH ×4 (03:04→17:53)
[2018-01-31] MEDS: METRONIDAZOLE 500 MG/NS RTU 100 ML IV SCH ×4 (04:14→18:46)
[2018-01-31] MEDS: HEPARIN SOD (PORCINE) 5,000 UNIT/ML 1 ML SYRINGE SUBCUT SCH ×3 (05:02→22:00)
[2018-01-31 05:12] LABS: HEMATOCRIT 31.6 % (36.0-47.0); MEAN CORPUSCULAR HEMOGLOBIN 28.8 pg (27.0-33.4); MEAN CORPUSCULAR HGB CONC 33.4 g/dL (32.0-36.0); MEAN CORPUSCULAR VOLUME 86 fl (80-97); RED BLOOD COUNT 3.66 10^6/uL (3.72-5.28); RED CELL DISTRIBUTION WIDTH 14.8 % (11.5-14.0); WHITE BLOOD COUNT 2.3 10^3/uL (4.0-10.5)
[2018-01-31 05:36] LABS: ALANINE AMINOTRANSFERASE 32 U/L (9-52); ALKALINE PHOSPHATASE 46 U/L (38-126); ANION GAP 12 (5-19); ASPARTATE AMINO TRANSFERASE 15 U/L (14-36); BILIRUBIN,DIRECT 0.4 mg/dL (0.0-0.4); BILIRUBIN,TOTAL 0.7 mg/dL (0.2-1.3); BLOOD UREA NITROGEN 83 mg/dL (7-20); CALCIUM 7.8 mg/dL (8.4-10.2); CARBON DIOXIDE 17 mmol/L (22-30); CHLORIDE 106 mmol/L (98-107); GLUCOSE 91 mg/dL (75-110); POTASSIUM 3.4 mmol/L (3.6-5.0); SODIUM 134.5 mmol/L (137-145); TOTAL PROTEIN 3.8 g/dL (6.3-8.2)
[2018-01-31] MEDS: LEVOTHYROXINE SODIUM 0.075 MG TABLET PO SCH (05:53)
[2018-01-31 06:02] LABS: HEMOGLOBIN 10.6 g/dL (12.0-15.5); PLATELET COUNT 55 10^3/uL (150-450)
[2018-01-31] MEDS ORDERED: POTASSIUM CHLORIDE 10 MEQ TABLET.SA PO ONE (07:42)
--- NOTE | 2018-01-31 08:23 | PDOC CONSULTATION ---
Consultation Consult Date: 01/31/18 Consult reason:: Hematology consultation was requested for pancytopenia History of Present Illness Admission Date/PCP: 01/29/18 23:49 LISA TODD MD History of Present Illness: JAMIN JEAN-BAPTISTE is a 82 year old female who presented to the hospital with a 2 week history of fatigue and cough. No fever, but weakness to the point that she was staying in bed all day. 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 On presentation, she has pancytopenia and was transfused 3 units pRBCs. Her PLTs continue to drop and her Fibrinogen is quite low. Her urine remains positive for Gram negative rods. She has been afebrile and hemodynamically stable, and was started on antibiotics for UTI/Sepsis. Today, she states that her back hurts. She has a very dry mouth and her skin bruises very easily. She had 3 episodes of diarrhea last night. Past Medical History Past Medical History: All per prior hospital records. Cardiac Medical History: Reports: Congestive Heart Failure, Coronary Artery Disease - high chol , Hyperlipidema, Hypertension Pulmonary Medical History: Reports: Bronchitis, Other - Kenneth's vasculitis. Neurological Medical History: Denies: Migraine, Seizures Endocrine Medical History: Reports: Hypothyroidism GI Medical History: Reports: Gastroesophageal Reflux Disease Musculoskeltal Medical History: Reports: Arthritis Psychiatric Medical History: Denies: Depression Hematology: Reports: Anemia Past Surgical History Past Surgical History: Reports: Hip Replacement, Other - right hip Denies: Hysterectomy Social History Lives with: Family Smoking Status: Never Smoker Frequency of Alcohol Use: None Hx Recreational Drug Use: No Drugs: None Hx Prescription Drug Abuse: No - Advance Directive Resuscitation Status: Full Code Family History Family History: Reviewed & Not Pertinent Parental Family History Reviewed: Yes Children Family History Reviewed: Yes Sibling(s) Family History Reviewed.: No Medication/Allergy Home Medications: Cholecalciferol (Vitamin D3) [Vitamin D3 2000 unit Tablet] 2,000 unit PO DAILY 10/15/17 Cyclosporine 0.05% Oph Emulsio [Restasis 0.05% Oph Emulsion Pf 0.4 ml] 1 drop OU BID 10/15/17 Furosemide [Lasix 40 mg Tablet] 40 mg PO BID 10/15/17 Latanoprost [Xalatan 0.005% Oph Soln 2.5 ml] 1 drop OU QHS 10/15/17 Levothyroxine Sodium [Synthroid 0.075 mg Tablet] 0.075 mg PO Q6AM 10/15/17 Mycophenolate Mofetil 500 mg PO BID 10/15/17 Simvastatin 20 mg PO QHS 10/15/17 Tamsulosin HCl 0.4 mg PO QHS 10/15/17 Amlodipine Besylate [Norvasc 5 mg Tablet] 5 mg PO DAILY 01/30/18 Potassium Chloride [Klor-Con 10 Meq Tablet.sa] 10 meq PO Q12 01/30/18 Ranitidine HCl [Zantac 150 mg Tablet] 150 mg PO BID 01/30/18 Allergies/Adverse Reactions: cephalexin monohydrate [From Keflex] Allergy (Intermediate, Verified 01/30/18 04 :34) Swelling of hands and/or feet codeine [Codeine] Allergy (Intermediate, Verified 01/29/18 19:44) VOMITING Penicillins Allergy (Intermediate, Verified 01/30/18 04:34) Swelling of hands and/or feet Review of Systems Constitutional: PRESENT: headache(s) Eyes: ABSENT: visual disturbances Ears: PRESENT: hearing changes Nose, Mouth, and Throat: PRESENT: other - Dry mouth Cardiovascular: ABSENT: chest pain Respiratory: PRESENT: cough Gastrointestinal: PRESENT: diarrhea. ABSENT: vomiting Genitourinary: ABSENT: dysuria Musculoskeletal: PRESENT: back pain Integumentary: PRESENT: lesions. ABSENT: pruritus Neurological: PRESENT: weakness. ABSENT: vertigo Psychiatric: ABSENT: anxiety, depression Hematologic/Lymphatic: PRESENT: easy bruising Physical Exam Vital Signs: Temp Pulse Resp BP Pulse Ox 97.9 F 81 20 134/53 H 96 01/31/18 07:46 01/31/18 07:46 01/31/18 07:46 01/31/18 07:46 01/31/18 07:46 Intake & Output 01/30/18 01/31/18 02/01/18 06:59 06:59 06:59 Intake Total 2250 Balance 2250 Weight 60.6 kg General appearance: PRESENT: well-nourished Exam: Well nourished, 82 year old female. Head exam: PRESENT: atraumatic Eye exam: PRESENT: PERRLA Ear exam: PRESENT: normal external ear exam Mouth exam: PRESENT: tongue midline Neck exam: ABSENT: lymphadenopathy, tenderness Respiratory exam: PRESENT: unlabored, other - Upper airway noise bilaterally. Coarse cough. Cardiovascular exam: PRESENT: RRR. ABSENT: systolic murmur Vascular exam: ABSENT: pallor GI/Abdominal exam: PRESENT: normal bowel sounds, soft. ABSENT: organolmegaly, tenderness Extremities exam: PRESENT: +1 edema Neurological exam: PRESENT: alert, awake, other - Hard of hearing, but moves all 4 extremities. Psychiatric exam: PRESENT: appropriate affect Focused psych exam: ABSENT: pressured speech, psychomotor agitation Skin exam: PRESENT: normal color, other - Echymoses over legs and arms. Some skin tears. Results Laboratory Results: 01/31/18 04:07 01/31/18 04:07 01/30/18 01/30/18 01/30/18 07:40 07:40 07:40 WBC Cancelled RBC Cancelled Hgb Cancelled Hct Cancelled MCV Cancelled MCH Cancelled MCHC Cancelled RDW Cancelled Plt Count Cancelled Sodium 135.0 L Potassium 3.6 Chloride 104 Carbon Dioxide 19 L Anion Gap 12 BUN 86 H Creatinine 3.55 H Est GFR ( Amer) 15 L Est GFR (Non-Af Amer) 12 L Glucose 131 H Lactic Acid Calcium 8.1 L Phosphorus 4.6 H Magnesium 1.8 Total Bilirubin 0.2 AST 13 L ALT 28 Alkaline Phosphatase 46 Total Protein 4.1 L Albumin 2.2 L Vitamin B12 Blood Type Antibody Screen 01/30/18 01/30/18 01/30/18 07:40 07:40 10:34 WBC 1.4 L* RBC 2.53 L Hgb 6.9 L Hct 21.6 L MCV 86 MCH 27.4 MCHC 32.0 RDW 14.3 H Plt Count 66 L Sodium Potassium Chloride Carbon Dioxide Anion Gap BUN Creatinine Est GFR ( Amer) Est GFR (Non-Af Amer) Glucose Lactic Acid 1.6 Calcium Phosphorus Magnesium Total Bilirubin AST ALT Alkaline Phosphatase Total Protein Albumin Vitamin B12 949.0 H Blood Type Antibody Screen 01/30/18 01/30/18 01/31/18 12:09 13:50 04:07 WBC 2.3 L RBC 3.66 L Hgb 10.6 L D Hct 31.6 L MCV 86 MCH 28.8 MCHC 33.4 RDW 14.8 H Plt Count 55 L Sodium Potassium Chloride Carbon Dioxide Anion Gap BUN Creatinine Est GFR ( Amer) Est GFR (Non-Af Amer) Glucose Lactic Acid 1.1 Calcium Phosphorus Magnesium Total Bilirubin AST ALT Alkaline Phosphatase Total Protein Albumin Vitamin B12 Blood Type A POSITIVE Antibody Screen NEGATIVE 01/31/18 04:07 WBC RBC Hgb Hct MCV MCH MCHC RDW Plt Count Sodium 134.5 L Potassium 3.4 L Chloride 106 Carbon Dioxide 17 L Anion Gap 12 BUN 83 H Creatinine 3.42 H Est GFR ( Amer) 15 L Est GFR (Non-Af Amer) 13 L Glucose 91 Lactic Acid Calcium 7.8 L Phosphorus Magnesium Total Bilirubin 0.7 AST 15 ALT 32 Alkaline Phosphatase 46 Total Protein 3.8 L Albumin 2.0 L Vitamin B12 Blood Type Antibody Screen 01/30/18 01/30/18 01/30/18 07:40 13:50 17:15 Troponin I < 0.012 < 0.012 < 0.012 Impressions: Chest X-Ray 01/29/18 21:24 IMPRESSION: NO ACUTE RADIOGRAPHIC FINDING IN THE CHEST. Pelvis X-Ray 01/29/18 21:24 IMPRESSION: No fracture or dislocation. Right total hip arthroplasty. Bony pelvis is intact. Abdomen/Pelvis CT 01/30/18 00:00 IMPRESSION: 1. No acute or suspicious abdominopelvic abnormality. Specifically , no evidence of urinary tract obstruction. 2. Mild cholelithiasis. 3. Distal colonic diverticulosis without CT suggestion of active diverticulitis. Please note: The pelvis is partially obscured by artifact. Do pitting on clinical presentation, mild diverticulitis could still be present. Lumbar Spine MRI 01/30/18 00:00 IMPRESSION: Spondylosis and facet arthropathy. Grade 1 spondylolisthesis and spondylolysis L4- 5. Mild spinal stenosis at multiple levels. Neural foraminal stenosis L5-S1. Status: Image reviewed by me Assessment & Plan - Diagnosis (1) Pancytopenia Is this a current diagnosis for this admission?: Yes Plan: I reviewed the perif. smear which showed normocytic, normochromic RBCs with cory cells and schistocytes. Platelets normal in morphology but decreased in number with some giant forms visualized. WBCs with increased neutrophils and no immature forms. I am concerned about the possibility of TTP in this patient. I have ordered LDH and haptoglobin. Her Fibrinogen is low. I would consider transfusing Cryoprecipitate. I have left a message for the patient's family and have discussed her care with her attending physician today. If this is TTP, or a primary bone marrow problem , we may not be able to care for her here and she may benefit from transfer to a larger institution. However, due to her age and performance status, I am also concerned that no matter what is found, she may not tolerate aggressive treatment. She would be a great candidate for Hospice services at this point. I will continue to try to reach family to discuss this
[2018-01-31] MEDS ORDERED: (PENDING PHARMACY ID) (Cholecalciferol (Vitamin D3) [Vitamin D3 2000 Unit Tablet] 2,000 UN PO SCH (10:00)
[2018-01-31] MEDS ORDERED: (PENDING PHARMACY ID) (Ranitidine Hcl [Zantac 150 Mg Tablet] 150 MG) PO SCH (10:00)
[2018-01-31] MEDS: CHOLECALCIFEROL (D3) 1,000 UNIT TABLET PO SCH (10:34)
[2018-01-31] MEDS: AMLODIPINE BESYLATE 5 MG TABLET PO SCH (10:36)
[2018-01-31] MEDS: CYCLOSPORINE 0.05% OPH EMULSIO 0.4 ML DROPERETTE OU SCH ×2 (10:37→17:53)
[2018-01-31] MEDS: LACTOBACILLUS ACIDOPHILUS 250 MG TAB PO SCH ×2 (10:37→17:54)
[2018-01-31] MEDS: FAMOTIDINE 20 MG TABLET PO SCH ×2 (10:37→21:59)
[2018-01-31] MEDS: TIZANIDINE HCL 4 MG TABLET PO SCH ×2 (10:37→17:53)
[2018-01-31] MEDS: ALBUTEROL SULFATE 0.083% NEB 2.5 MG/3 ML AMPUL NEB PRN (12:48)
[2018-01-31] MEDS: PREDNISONE 20 MG TABLET PO SCH (13:35)
--- NOTE | 2018-01-31 16:20 | PDOC PROGRESS REPORT ---
Subjective Progress Note for:: 01/31/18 Subjective:: Patient complains of feeling week. She was notified about the results. Her son was at bedside and had a conversation since he was able to talk to Dr. Cates. Patient is on requested for this provider to contact Dr. Mccoy. After calling the office I was notified that Dr. Mccoy was on vacation but was able to talk to Dr. Valdez. Patient's case was discussed with him and according to the data presented to him he felt that patient less likely had TTP. Also in his opinion patient did not need transfer to [facility]. Afterwards had another family meeting and recapped patient's overall medical condition. Her 3 children and spouses were present and all were in agreement for hospice care Review of system All organ systems evaluated and negative except as in subjective All significant laboratories and diagnostics have been reviewed Reason For Visit: SEPSIS/UTI Physical Exam Vital Signs: Temp Pulse Resp BP Pulse Ox 98.5 F 85 16 124/96 H 95 01/31/18 03:50 01/31/18 03:50 01/31/18 03:50 01/31/18 03:50 01/31/18 03:50 Intake & Output 01/30/18 01/31/18 02/01/18 06:59 06:59 06:59 Intake Total 2250 Balance 2250 Weight 60.6 kg General appearance: PRESENT: no acute distress, cooperative, well-developed, well-nourished Head exam: PRESENT: atraumatic, normocephalic Eye exam: PRESENT: conjunctiva pink, EOMI, PERRLA Mouth exam: PRESENT: moist Neck exam: PRESENT: full ROM. ABSENT: JVD, lymphadenopathy, tenderness Respiratory exam: PRESENT: decreased breath sounds, rhonchi Cardiovascular exam: PRESENT: RRR. ABSENT: diastolic murmur, systolic murmur Vascular exam: PRESENT: pallor GI/Abdominal exam: PRESENT: normal bowel sounds, soft. ABSENT: tenderness Extremities exam: PRESENT: full ROM, pedal edema Musculoskeletal exam: ABSENT: ambulatory Neurological exam: PRESENT: alert, awake, oriented to person, oriented to place , oriented to time, oriented to situation, CN II-XII grossly intact Psychiatric exam: PRESENT: appropriate affect, normal mood Skin exam: PRESENT: pallor Results Laboratory Results: 01/31/18 04:07 01/31/18 04:07 01/30/18 01/30/18 01/30/18 07:40 07:40 07:40 WBC Cancelled RBC Cancelled Hgb Cancelled Hct Cancelled MCV Cancelled MCH Cancelled MCHC Cancelled RDW Cancelled Plt Count Cancelled Sodium 135.0 L Potassium 3.6 Chloride 104 Carbon Dioxide 19 L Anion Gap 12 BUN 86 H Creatinine 3.55 H Est GFR ( Amer) 15 L Est GFR (Non-Af Amer) 12 L Glucose 131 H Lactic Acid Calcium 8.1 L Phosphorus 4.6 H Magnesium 1.8 Total Bilirubin 0.2 AST 13 L ALT 28 Alkaline Phosphatase 46 Total Protein 4.1 L Albumin 2.2 L Vitamin B12 Blood Type Antibody Screen 01/30/18 01/30/18 01/30/18 07:40 07:40 10:34 WBC 1.4 L* RBC 2.53 L Hgb 6.9 L Hct 21.6 L MCV 86 MCH 27.4 MCHC 32.0 RDW 14.3 H Plt Count 66 L Sodium Potassium Chloride Carbon Dioxide Anion Gap BUN Creatinine Est GFR ( Amer) Est GFR (Non-Af Amer) Glucose Lactic Acid 1.6 Calcium Phosphorus Magnesium Total Bilirubin AST ALT Alkaline Phosphatase Total Protein Albumin Vitamin B12 949.0 H Blood Type Antibody Screen 01/30/18 01/30/18 01/31/18 12:09 13:50 04:07 WBC 2.3 L RBC 3.66 L Hgb 10.6 L D Hct 31.6 L MCV 86 MCH 28.8 MCHC 33.4 RDW 14.8 H Plt Count 55 L Sodium Potassium Chloride Carbon Dioxide Anion Gap BUN Creatinine Est GFR ( Amer) Est GFR (Non-Af Amer) Glucose Lactic Acid 1.1 Calcium Phosphorus Magnesium Total Bilirubin AST ALT Alkaline Phosphatase Total Protein Albumin Vitamin B12 Blood Type A POSITIVE Antibody Screen NEGATIVE 01/31/18 04:07 WBC RBC Hgb Hct MCV MCH MCHC RDW Plt Count Sodium 134.5 L Potassium 3.4 L Chloride 106 Carbon Dioxide 17 L Anion Gap 12 BUN 83 H Creatinine 3.42 H Est GFR ( Amer) 15 L Est GFR (Non-Af Amer) 13 L Glucose 91 Lactic Acid Calcium 7.8 L Phosphorus Magnesium Total Bilirubin 0.7 AST 15 ALT 32 Alkaline Phosphatase 46 Total Protein 3.8 L Albumin 2.0 L Vitamin B12 Blood Type Antibody Screen 01/30/18 01/30/18 01/30/18 07:40 13:50 17:15 Troponin I < 0.012 < 0.012 < 0.012 Impressions: Chest X-Ray 01/29/18 21:24 IMPRESSION: NO ACUTE RADIOGRAPHIC FINDING IN THE CHEST. Pelvis X-Ray 01/29/18 21:24 IMPRESSION: No fracture or dislocation. Right total hip arthroplasty. Bony pelvis is intact. Abdomen/Pelvis CT 01/30/18 00:00 IMPRESSION: 1. No acute or suspicious abdominopelvic abnormality. Specifically , no evidence of urinary tract obstruction. 2. Mild cholelithiasis. 3. Distal colonic diverticulosis without CT suggestion of active diverticulitis. Please note: The pelvis is partially obscured by artifact. Do pitting on clinical presentation, mild diverticulitis could still be present. Lumbar Spine MRI 01/30/18 00:00 IMPRESSION: Spondylosis and facet arthropathy. Grade 1 spondylolisthesis and spondylolysis L4- 5. Mild spinal stenosis at multiple levels. Neural foraminal stenosis L5-S1. Assessment & Plan - Diagnosis (1) Acute on chronic renal failure Qualifiers: Acute renal failure type: unspecified Chronic kidney disease stage: unspecified stage Qualified Code(s): N17.9 - Acute kidney failure, unspecified ; N18.9 - Chronic kidney disease, unspecified; N18.9 - Chronic kidney disease, unspecified Is this a current diagnosis for this admission?: Yes Plan: Likely due to an element of volume contraction. Improved after transfusion (2) Pancytopenia Is this a current diagnosis for this admission?: Yes Plan: Likely due to tacrolimus. This medication has been held on admission. There has been some improvement except for a decrease in platelets which may be dilutional. To keep trending for now (3) Sepsis Qualifiers: Sepsis type: sepsis due to unspecified organism Qualified Code(s): A41.9 - Sepsis, unspecified organism Is this a current diagnosis for this admission?: Yes Plan: Likely source is urinary tract. Will continue present management (4) Anemia Qualifiers: Anemia type: due to chronic kidney disease Chronic kidney disease stage: stage 4 (severe) Qualified Code(s): N18.4 - Chronic kidney disease, stage 4 ( severe); D63.1 - Anemia in chronic kidney disease; D63.1 - Anemia in chronic kidney disease Is this a current diagnosis for this admission?: Yes Plan: There is an acute blood loss which likely relates to immunosuppressive patient. Improved after transfusion of 2 units of packed red blood cells (5) CHF (congestive heart failure) Is this a current diagnosis for this admission?: Yes Plan: Chronic diastolic. Will watch for decompensation. Not a factor in this hospitalization for now (6) Urinary tract infection Qualifiers: Hematuria presence: with hematuria Is this a current diagnosis for this admission?: Yes Plan: Continue current management in the meantime (7) Diarrhea Qualifiers: Diarrhea type: unspecified type Qualified Code(s): R19.7 - Diarrhea, unspecified Is this a current diagnosis for this admission?: Yes Plan: Continue current management system has been some improvement (8) Back pain Qualifiers: Back pain location: low back pain Back pain laterality: left Sciatica presence: unspecified whether sciatica present Is this a current diagnosis for this admission?: Yes Plan: MRI of the lumbar spine noted. Discussed with family. Continue present management (9) Wegeners granulomatosis Is this a current diagnosis for this admission?: Yes Plan: Holding off tacrolimus.To restart prednisone which was not included in her initial med rec. Family made aware of decompensation of medical condition since holding off tracolimus (10) Dysphagia Qualifiers: Dysphagia type: unspecified Qualified Code(s): R13.10 - Dysphagia, unspecified Is this a current diagnosis for this admission?: Yes Plan: Chronic problem on this patient and accordingly she was to get an esophagus dilatation. Family made aware and at this point in time she may be high risk for the procedure. To order to crush medications and give with applesauce - Time Time Spent with patient: 25-34 minutes Medications reviewed and adjusted accordingly: Yes Anticipated discharge: Hospice Within: within 48 hours - Inpatient Certification Based on my medical assessment, after consideration of the patient's comorbidities, presenting symptoms, or acuity I expect that the services needed warrant INPATIENT care.: Yes I certify that my determination is in accordance with my understanding of Medicare's requirements for reasonable and necessary INPATIENT services [42 CFR 412.3e].: Yes Medical Necessity: Need Close Monitoring Due to Risk of Patient Decompensation, Need For IV Fluids
--- NOTE | 2018-01-31 19:46 | XCELERA REPORT ---
[address] [address] Transthoracic Echocardiogram Report Name: JAMIN JEAN-BAPTISTE Age: 82 yrs Gender: Female : 1935 Patient Status: Inpatient Patient Location: [address] [place] [address] Study Date: 01/31/2018 09:07 AM Height: 60 in Weight: 115 lb BSA: 1.5 m2 Procedure: A complete two-dimensional transthoracic echocardiogram was performed (2D, M-mode, spectral and color flow Doppler). The study was technically difficult with many images being suboptimal in quality. Reason For Study: Dyspnea Ordering Physician: CELESTINO KIM Performed By: Umu Johnson Interpretation Summary The left ventricular ejection fraction is normal. There is borderline concentric left ventricular hypertrophy. The left ventricle is grossly normal size. Doppler measurements suggest pseudonormalized left ventricular relaxation, which is associated with grade II/IV or mild to moderate diastolic dysfunction Wall motion cannot be accurately commented on, but no definite regional wall motion abnormalities noted. The right ventricular systolic function is normal. The right ventricle is grossly normal size. The right atrium is normal in size The left atrium is mildly dilated. There is a mild amount of mitral regurgitation There is no mitral valve stenosis. There is a trace to mild amount of aortic regurgitation There is no aortic valve stenosis There is a trace or physiologic amount of tricuspid regurgitation Tricuspid regurgitation jet envelope not well defined to measure RV systolic pressure accurately. The aortic root is not well visualized. The inferior vena cava was not well visualized There is no pericardial effusion. Doppler Measurements & Calculations MV E max rodo: MV dec slope: Ao V2 max: AI max rodo: 70.9 cm/sec 180.9 cm/sec 297.7 cm/sec MV A max rodo: 196.4 cm/sec2 Ao max PG: AI max P.4 cm/sec MV dec time: 13.1 mmHg 35.4 mmHg MV E/A: 0.56 0.36 sec AI dec slope: 77.6 cm/sec2 AI P1/2t: 1123 msec LV V1 max PG: PA V2 max: TR max rodo: 4.4 mmHg 119.0 cm/sec 239.6 cm/sec LV V1 max: PA max P.7 mmHg TR max P.0 cm/sec 23.0 mmHg Left Ventricle The left ventricle is grossly normal size. There is borderline concentric left ventricular hypertrophy. The left ventricular ejection fraction is normal. Doppler measurements suggest pseudonormalized left ventricular relaxation, which is associated with grade II/IV or mild to moderate diastolic dysfunction. Wall motion cannot be accurately commented on, but no definite regional wall motion abnormalities noted. Right Ventricle The right ventricle is grossly normal size. There is normal right ventricular wall thickness. The right ventricular systolic function is normal. Atria The right atrium is normal in size. The left atrium is mildly dilated. Interarterial septum not well visualized and not well dopplered. Cannot comment on ASD/PFO presence. Mitral Valve The mitral valve leaflets are sclerotic, but show no functional abnormalities. There is no mitral valve stenosis. There is a mild amount of mitral regurgitation. Aortic Valve The aortic valve is not well visualized secondary to technical limitations. There is no aortic valve stenosis. There is a trace to mild amount of aortic regurgitation. Tricuspid Valve The tricuspid valve is not well visualized secondary to technical limitations. There is no tricuspid stenosis. There is a trace or physiologic amount of tricuspid regurgitation. Tricuspid regurgitation jet envelope not well defined to measure RV systolic pressure accurately. Pulmonic Valve The pulmonic valve is not well visualized. Great Vessels The aortic root is not well visualized. The inferior vena cava was not well visualized. Effusions There is no pericardial effusion. : CELESTINO KIM > Yousuf Ann
[2018-01-31] MEDS: SIMVASTATIN 10 MG TABLET PO SCH (21:58)
[2018-01-31] MEDS: TAMSULOSIN HCL 0.4 MG CAP.SR.24H PO SCH (21:59)
[2018-01-31] MEDS: LATANOPROST 0.005% OPH SOLN 2.5 ML OU SCH (22:00)
[2018-02-01] MEDS: METRONIDAZOLE 500 MG/NS RTU 100 ML IV SCH ×4 (00:04→17:33)
[2018-02-01] MEDS: PIPERACILLIN SODIUM/TAZOBACTAM 2.25 GM in NORMAL SALINE 50 ML IV SCH ×2 (01:22→06:40)
[2018-02-01 05:27] LABS: ABSOLUTE LYMPHOCYTES (AUTO) 0.2 10^3/uL (0.5-4.7); ABSOLUTE MONOCYTES (AUTO) 0.1 10^3/uL (0.1-1.4); ABSOLUTE NEUT (AUTO) 2.4 10^3/uL (1.7-8.2); BASOPHILS % (AUTO) 0.1 % (0-2); HEMOGLOBIN 10.3 g/dL (12.0-15.5); LYMPHOCYTES % (AUTO) 6.4 % (13-45); MEAN CORPUSCULAR HEMOGLOBIN 28.5 pg (27.0-33.4); MEAN CORPUSCULAR HGB CONC 33.3 g/dL (32.0-36.0); MEAN CORPUSCULAR VOLUME 86 fl (80-97); MONOCYTES % (AUTO) 2.3 % (3-13); RED BLOOD COUNT 3.63 10^6/uL (3.72-5.28); SEGMENTED NEUTROPHILS % (AUTO) 91.2 % (42-78); TOTAL CELLS COUNTED % (AUTO) 100 %; WHITE BLOOD COUNT 2.6 10^3/uL (4.0-10.5)
[2018-02-01] MEDS: HEPARIN SOD (PORCINE) 5,000 UNIT/ML 1 ML SYRINGE SUBCUT SCH ×3 (05:43→22:21)
[2018-02-01 05:45] LABS: ANION GAP 12 (5-19); BLOOD UREA NITROGEN 79 mg/dL (7-20); CARBON DIOXIDE 13 mmol/L (22-30); CHLORIDE 107 mmol/L (98-107); GLUCOSE 139 mg/dL (75-110); POTASSIUM 4.3 mmol/L (3.6-5.0); SODIUM 131.9 mmol/L (137-145)
[2018-02-01] MEDS: LEVOTHYROXINE SODIUM 0.075 MG TABLET PO SCH (05:46)
[2018-02-01 05:54] LABS: PLATELET COUNT 46 10^3/uL (150-450)
[2018-02-01 07:39] LABS: PATH REVIEW PATHOLOGIST REVIEWED
[2018-02-01] MEDS: NORMAL SALINE 1000 ML 1,000 ML IV PRN (09:25)
[2018-02-01] MEDS: CYCLOSPORINE 0.05% OPH EMULSIO 0.4 ML DROPERETTE OU SCH ×2 (11:23→17:33)
[2018-02-01] MEDS: CHOLECALCIFEROL (D3) 1,000 UNIT TABLET PO SCH (11:25)
[2018-02-01] MEDS: FAMOTIDINE 20 MG TABLET PO SCH ×2 (11:26→22:18)
[2018-02-01] MEDS: LACTOBACILLUS ACIDOPHILUS 250 MG TAB PO SCH ×2 (11:26→17:33)
[2018-02-01] MEDS: AMLODIPINE BESYLATE 5 MG TABLET PO SCH (11:26)
[2018-02-01] MEDS: TIZANIDINE HCL 4 MG TABLET PO SCH ×2 (11:27→17:33)
[2018-02-01] MEDS: CEFEPIME 1 GM/D5W RTU 1 GM/50 ML RTUPB IV SCH ×2 (12:44→22:20)
[2018-02-01] MEDS: PREDNISONE 20 MG TABLET PO SCH (14:09)
--- NOTE | 2018-02-01 18:26 | PDOC PROGRESS REPORT ---
Subjective Progress Note for:: 02/01/18 Subjective:: Patient complains of still having diarrhea. She also complains of feeling weak. Patient has been accepted by hospice and anticipate to bring a bed to her house. Review of system All organ systems evaluated and negative except as in subjective All significant laboratories and diagnostics have been reviewed Reason For Visit: SEPSIS/UTI Physical Exam Vital Signs: Temp Pulse Resp BP Pulse Ox 98.5 F 65 12 112/79 100 02/01/18 15:00 02/01/18 15:00 02/01/18 15:00 02/01/18 15:00 02/01/18 15:00 Intake & Output 01/31/18 02/01/18 02/02/18 06:59 06:59 06:59 Intake Total 2250 1520 1205 Balance 2250 1520 1205 Weight 60.6 kg 60.5 kg General appearance: PRESENT: cooperative, hard of hearing, mild distress, thin Head exam: PRESENT: atraumatic, normocephalic Eye exam: PRESENT: conjunctiva pink, EOMI, PERRLA Ear exam: PRESENT: normal external ear exam Mouth exam: PRESENT: moist Neck exam: PRESENT: full ROM. ABSENT: JVD, lymphadenopathy, tenderness Respiratory exam: PRESENT: rhonchi Cardiovascular exam: PRESENT: RRR. ABSENT: diastolic murmur, systolic murmur Vascular exam: PRESENT: normal capillary refill GI/Abdominal exam: PRESENT: normal bowel sounds, soft. ABSENT: tenderness Extremities exam: PRESENT: full ROM, +2 edema Musculoskeletal exam: ABSENT: ambulatory Neurological exam: PRESENT: alert, awake, oriented to person, oriented to place , oriented to time Psychiatric exam: PRESENT: anxious Skin exam: PRESENT: petechiae, other - mostly localized to lower extremities Results Laboratory Results: 02/01/18 04:03 02/01/18 04:03 02/01/18 02/01/18 04:03 04:03 WBC 2.6 L RBC 3.63 L Hgb 10.3 L Hct 31.0 L MCV 86 MCH 28.5 MCHC 33.3 RDW 15.0 H Plt Count 46 L Seg Neutrophils % 91.2 H Lymphocytes % 6.4 L Monocytes % 2.3 L Eosinophils % 0.0 Basophils % 0.1 Absolute Neutrophils 2.4 Absolute Lymphocytes 0.2 L Absolute Monocytes 0.1 Absolute Eosinophils 0.0 Absolute Basophils 0.0 Sodium 131.9 L Potassium 4.3 Chloride 107 Carbon Dioxide 13 L Anion Gap 12 BUN 79 H Creatinine 3.23 H Est GFR ( Amer) 17 L Est GFR (Non-Af Amer) 14 L Glucose 139 H Calcium 8.0 L 01/30/18 01/30/18 01/30/18 07:40 13:50 17:15 Troponin I < 0.012 < 0.012 < 0.012 Impressions: Chest X-Ray 01/29/18 21:24 IMPRESSION: NO ACUTE RADIOGRAPHIC FINDING IN THE CHEST. Pelvis X-Ray 01/29/18 21:24 IMPRESSION: No fracture or dislocation. Right total hip arthroplasty. Bony pelvis is intact. Abdomen/Pelvis CT 01/30/18 00:00 IMPRESSION: 1. No acute or suspicious abdominopelvic abnormality. Specifically , no evidence of urinary tract obstruction. 2. Mild cholelithiasis. 3. Distal colonic diverticulosis without CT suggestion of active diverticulitis. Please note: The pelvis is partially obscured by artifact. Do pitting on clinical presentation, mild diverticulitis could still be present. Lumbar Spine MRI 01/30/18 00:00 IMPRESSION: Spondylosis and facet arthropathy. Grade 1 spondylolisthesis and spondylolysis L4- 5. Mild spinal stenosis at multiple levels. Neural foraminal stenosis L5-S1. Assessment & Plan - Diagnosis (1) Acute on chronic renal failure Qualifiers: Acute renal failure type: unspecified Chronic kidney disease stage: unspecified stage Qualified Code(s): N17.9 - Acute kidney failure, unspecified ; N18.9 - Chronic kidney disease, unspecified; N18.9 - Chronic kidney disease, unspecified Is this a current diagnosis for this admission?: Yes Plan: Likely due to an element of volume contraction. Improved after transfusion (2) Pancytopenia Is this a current diagnosis for this admission?: Yes Plan: Likely due to tacrolimus. This medication has been held on admission. There has been some improvement except for a decrease in platelet which is persisting. To keep trending for now (3) Sepsis Qualifiers: Sepsis type: sepsis due to unspecified organism Qualified Code(s): A41.9 - Sepsis, unspecified organism Is this a current diagnosis for this admission?: Yes Plan: Likely source is urinary tract. Change to cefepime and watch for any adverse reaction (4) Anemia Qualifiers: Anemia type: due to chronic kidney disease Chronic kidney disease stage: stage 4 (severe) Qualified Code(s): N18.4 - Chronic kidney disease, stage 4 ( severe); D63.1 - Anemia in chronic kidney disease; D63.1 - Anemia in chronic kidney disease Is this a current diagnosis for this admission?: Yes Plan: There is an acute blood loss which likely relates to immunosuppressive patient. Improved after transfusion of 2 units of packed red blood cells (5) CHF (congestive heart failure) Is this a current diagnosis for this admission?: Yes Plan: Chronic diastolic. Will watch for decompensation. Not a factor in this hospitalization for now (6) Urinary tract infection Qualifiers: Hematuria presence: with hematuria Is this a current diagnosis for this admission?: Yes Plan: Changed to cefepime since growing E. coli and Pseudomonas (7) Diarrhea Qualifiers: Diarrhea type: unspecified type Qualified Code(s): R19.7 - Diarrhea, unspecified Is this a current diagnosis for this admission?: Yes Plan: Likely due to tacrolimus. Discontinue Flagyl (8) Back pain Qualifiers: Back pain location: low back pain Back pain laterality: left Sciatica presence: unspecified whether sciatica present Is this a current diagnosis for this admission?: Yes Plan: MRI of the lumbar spine noted. Discussed with family. Continue present management (9) Wegeners granulomatosis Is this a current diagnosis for this admission?: Yes Plan: Holding off tacrolimus. Continue prednisone. (10) Dysphagia Qualifiers: Dysphagia type: unspecified Qualified Code(s): R13.10 - Dysphagia, unspecified Is this a current diagnosis for this admission?: Yes Plan: Chronic problem on this patient and accordingly she was to get an esophagus dilatation. Family made aware and at this point in time she may be high risk for the procedure. Continue crushing medications and give with applesauce - Time Time Spent with patient: 15-24 minutes Medications reviewed and adjusted accordingly: Yes Anticipated discharge: Hospice Within: within 24 hours - Inpatient Certification Based on my medical assessment, after consideration of the patient's comorbidities, presenting symptoms, or acuity I expect that the services needed warrant INPATIENT care.: Yes I certify that my determination is in accordance with my understanding of Medicare's requirements for reasonable and necessary INPATIENT services [42 CFR 412.3e].: Yes Medical Necessity: Need Close Monitoring Due to Risk of Patient Decompensation, Need for IV Antibiotics
[2018-02-01] MEDS: SIMVASTATIN 10 MG TABLET PO SCH (22:18)
[2018-02-01] MEDS: LATANOPROST 0.005% OPH SOLN 2.5 ML OU SCH (22:18)
[2018-02-01] MEDS: TAMSULOSIN HCL 0.4 MG CAP.SR.24H PO SCH (22:19)
[2018-02-02] MEDS: NORMAL SALINE 1000 ML 1,000 ML IV PRN (04:03)
[2018-02-02] MEDS: HEPARIN SOD (PORCINE) 5,000 UNIT/ML 1 ML SYRINGE SUBCUT SCH ×2 (05:01→13:49)
[2018-02-02] MEDS: LEVOTHYROXINE SODIUM 0.075 MG TABLET PO SCH (05:03)
--- NOTE | 2018-02-02 07:58 | PDOC PROGRESS REPORT ---
Subjective Progress Note for:: 02/02/18 Subjective:: Patient states that she is feeling better today. She feels ready to go home today. Reason For Visit: SEPSIS/UTI Physical Exam Vital Signs: Temp Pulse Resp BP Pulse Ox 97.5 F 68 16 114/54 L 98 02/01/18 23:00 02/02/18 07:00 02/01/18 23:00 02/01/18 23:00 02/01/18 23:00 Intake & Output 02/01/18 02/02/18 02/03/18 06:59 06:59 06:59 Intake Total 1520 2852 Output Total 350 Balance 1520 2502 Weight 60.5 kg 62.8 kg General appearance: PRESENT: no acute distress Respiratory exam: PRESENT: unlabored Neurological exam: PRESENT: awake Psychiatric exam: PRESENT: appropriate affect Skin exam: PRESENT: normal color Results Laboratory Results: 02/01/18 04:03 02/01/18 04:03 01/30/18 01/30/18 01/30/18 07:40 13:50 17:15 Troponin I < 0.012 < 0.012 < 0.012 Impressions: Chest X-Ray 01/29/18 21:24 IMPRESSION: NO ACUTE RADIOGRAPHIC FINDING IN THE CHEST. Pelvis X-Ray 01/29/18 21:24 IMPRESSION: No fracture or dislocation. Right total hip arthroplasty. Bony pelvis is intact. Abdomen/Pelvis CT 01/30/18 00:00 IMPRESSION: 1. No acute or suspicious abdominopelvic abnormality. Specifically , no evidence of urinary tract obstruction. 2. Mild cholelithiasis. 3. Distal colonic diverticulosis without CT suggestion of active diverticulitis. Please note: The pelvis is partially obscured by artifact. Do pitting on clinical presentation, mild diverticulitis could still be present. Lumbar Spine MRI 01/30/18 00:00 IMPRESSION: Spondylosis and facet arthropathy. Grade 1 spondylolisthesis and spondylolysis L4- 5. Mild spinal stenosis at multiple levels. Neural foraminal stenosis L5-S1. Assessment & Plan - Diagnosis (1) Pancytopenia Is this a current diagnosis for this admission?: Yes - Plan Summary Plan Summary: Patient is no longer neutropenic. However, anemia and thrombocytopenia remain. I agree with plans for Hospice today. I will be happy to follow in the future , if needed.
[2018-02-02] MEDS: CEFEPIME 1 GM/D5W RTU 1 GM/50 ML RTUPB IV SCH (11:08)
[2018-02-02] MEDS: CYCLOSPORINE 0.05% OPH EMULSIO 0.4 ML DROPERETTE OU SCH (11:12)
[2018-02-02] MEDS: CHOLECALCIFEROL (D3) 1,000 UNIT TABLET PO SCH (11:16)
[2018-02-02] MEDS: LACTOBACILLUS ACIDOPHILUS 250 MG TAB PO SCH (11:17)
[2018-02-02] MEDS: TIZANIDINE HCL 4 MG TABLET PO SCH (11:18)
[2018-02-02] MEDS: FAMOTIDINE 20 MG TABLET PO SCH (11:18)
[2018-02-02] MEDS: AMLODIPINE BESYLATE 5 MG TABLET PO SCH (11:19)
[2018-02-02 12:33] VITALS: BP 131/66
[2018-02-02] MEDS: PREDNISONE 20 MG TABLET PO SCH (13:51)
--- NOTE | 2018-02-02 16:25 | PDOC DISCHARGE SUMMARY ---
General - Admit/Disc Date/PCP Admission Date/Primary Care Provider: 01/29/18 23:49 LISA TODD MD Discharge Date: 02/02/18 - Discharge Diagnosis (1) Urinary tract infection Is this a current diagnosis for this admission?: Yes (2) Sepsis Is this a current diagnosis for this admission?: Yes (3) Acute on chronic renal failure Is this a current diagnosis for this admission?: Yes (4) Pancytopenia Is this a current diagnosis for this admission?: Yes (5) Anemia Is this a current diagnosis for this admission?: Yes (6) CHF (congestive heart failure) Is this a current diagnosis for this admission?: No (7) Diarrhea Is this a current diagnosis for this admission?: Yes (8) Back pain Is this a current diagnosis for this admission?: Yes (9) Wegeners granulomatosis Is this a current diagnosis for this admission?: Yes (10) Dysphagia Is this a current diagnosis for this admission?: Yes (11) Thrombocytopenia Is this a current diagnosis for this admission?: Yes - Additional Information Resuscitation Status: Do Not Resuscitate Discharge Diet: As Tolerated Discharge Activity: Bedrest Prescriptions: Oxycodone HCl/Acetaminophen [Percocet 5-325 mg Tablet] 1 tab PO Q6HP PRN #12 tablet PRN Reason: Home Medications: Cholecalciferol (Vitamin D3) [Vitamin D3 2000 unit Tablet] 2,000 unit PO DAILY 10/15/17 Cyclosporine 0.05% Oph Emulsio [Restasis 0.05% Oph Emulsion Pf 0.4 ml] 1 drop OU BID 10/15/17 Latanoprost [Xalatan 0.005% Oph Soln 2.5 ml] 1 drop OU QHS 10/15/17 Levothyroxine Sodium [Synthroid 0.075 mg Tablet] 0.075 mg PO Q6AM 10/15/17 Tamsulosin HCl 0.4 mg PO QHS 10/15/17 Amlodipine Besylate [Norvasc 5 mg Tablet] 5 mg PO DAILY 01/30/18 Ranitidine HCl [Zantac 150 mg Tablet] 150 mg PO BID 01/30/18 Oxycodone HCl/Acetaminophen [Percocet 5-325 mg Tablet] 1 tab PO Q6HP PRN #12 tablet 02/02/18 History of Present Illness History of Present Illness: JAMIN JEAN-BAPTISTE is a 82 year old female with history of Min's vasculitis , CKD stage IV and hypertension was admitted complaints of lower back pain and generalized weakness for 4 days. The history was obtained from her son and [id number] at bedside. According to her family, the patient had been complainig of generalized weakness for the last few days and poor appetite. She also had been having dyspnea on exertion for several weeks. She was seen at [facility] on 01/26/2018 where blood work was done in addition to a chest x- ray. They were given negative workup. The patient was given 1 L of normal saline thinking that she could be dehydrated and she was discharged home. Her son was out of town today and came to visit her after 7 PM on the day of admission. His brother told him that she was very weak when he tried to get her up at around 2 PM. She also had diarrhea x1 episode with loose, nonbloody stool. The patient had been complaining of intermittent crampy abdominal pain and nausea when she tried to eat but no vomiting. She denied any fever or urinary symptoms but she always has chills. She had been having a productive cough of clear sputum for the last month with dyspnea on exertion for the last 2 weeks, no sick contact. She apparently had 2 courses of antibiotics started by her PCP and has been having intermittent diarrhea since then. She reportedly was checked for C. difficile and it was negative per family. She suffers from chronic lower back pain which is exacerbated by coughing. She also was complaining of right hip pain lately. In the ED, her temperature was 97.4, heart rate 97, respiratory rate 16, blood pressure 97/48 with oxygen saturation of 95% on room air. Her WBC was 2.1 with hemoglobin of 8.4 and platelets of 72. Her BUN/creatinine was 87/3.78 with blood glucose of 149. Chest x-ray and right hip x-ray were done both of which were unremarkable. She received 2 g cefepime 1, 1 L normal saline 1 and 15 mg Toradol 1 Hospital Course Hospital Course: Patient was admitted with an initial impression of sepsis since immunosuppressed. Patient is on tacrolimus and prednisone for the treatment of Min's vasculitis. Culprit being a urinary tract infection. Urine culture grew higher than 100,000 colonies of E. coli and pseudomonas aeruginosa. Patient also presented with diarrhea. C diff was tested and negative. A CT of the abdomen and pelvis was requested to evaluate complaints of abdominal pain and back pain only demonstrating diverticulosis. MRI of the lumbar spine demonstrated mild spinal stenosis. Patient required transfusion of 2 units of packed red blood cells due to declining hemoglobin and hematocrit. Afterwards there was stabilization however there was a persistent downward trend of platelet count. There was a transient improvement of renal function with gentle hydration and blood transfusion. Family meeting was pursued since she was evaluated by Dr. Bundy and her opinion was that patient's condition and comorbidities granted consideration for hospice and the author agreed. We also consulted patient's oncology practice, Dr. Valdez. Family was in agreement they wish for comfort care. Hospice was consulted and she is being discharged under home hospice. Her prognosis at the time of discharge remains poor. Physical Exam Vital Signs: Temp Pulse Resp BP Pulse Ox 97.5 F 77 16 114/54 L 98 02/01/18 23:00 02/02/18 02:00 02/01/18 23:00 02/01/18 23:00 02/01/18 23:00 Intake & Output 02/01/18 02/02/18 02/03/18 06:59 06:59 06:59 Intake Total 1520 2852 Output Total 350 Balance 1520 2502 Weight 60.5 kg 62.8 kg General appearance: PRESENT: cooperative, mild distress Head exam: PRESENT: atraumatic, normocephalic Eye exam: PRESENT: conjunctiva pink, EOMI, PERRLA Ear exam: PRESENT: normal external ear exam Mouth exam: PRESENT: moist Neck exam: PRESENT: full ROM. ABSENT: JVD, lymphadenopathy, tenderness Respiratory exam: PRESENT: decreased breath sounds, rhonchi Cardiovascular exam: PRESENT: RRR. ABSENT: diastolic murmur, systolic murmur Vascular exam: PRESENT: normal capillary refill GI/Abdominal exam: PRESENT: normal bowel sounds, soft, tenderness Extremities exam: PRESENT: +1 edema. ABSENT: full ROM Musculoskeletal exam: ABSENT: ambulatory Neurological exam: PRESENT: alert, awake, oriented to person, oriented to place , oriented to time Psychiatric exam: PRESENT: depressed Skin exam: PRESENT: pallor, petechiae Results Laboratory Results: 02/01/18 04:03 02/01/18 04:03 01/30/18 01/30/18 01/30/18 07:40 13:50 17:15 Troponin I < 0.012 < 0.012 < 0.012 Impressions: Chest X-Ray 01/29/18 21:24 IMPRESSION: NO ACUTE RADIOGRAPHIC FINDING IN THE CHEST. Pelvis X-Ray 01/29/18 21:24 IMPRESSION: No fracture or dislocation. Right total hip arthroplasty. Bony pelvis is intact. Abdomen/Pelvis CT 01/30/18 00:00 IMPRESSION: 1. No acute or suspicious abdominopelvic abnormality. Specifically , no evidence of urinary tract obstruction. 2. Mild cholelithiasis. 3. Distal colonic diverticulosis without CT suggestion of active diverticulitis. Please note: The pelvis is partially obscured by artifact. Do pitting on clinical presentation, mild diverticulitis could still be present. Lumbar Spine MRI 01/30/18 00:00 IMPRESSION: Spondylosis and facet arthropathy. Grade 1 spondylolisthesis and spondylolysis L4- 5. Mild spinal stenosis at multiple levels. Neural foraminal stenosis L5-S1. Qualifiers - * PATIENT BEING DISCHARGED WITH ANY OF THE FOLLOWING DIAGNOSIS: No Plan Discharge Plan: Patient discharged under hospice care Time Spent: Greater than 30 Minutes
== END 2018-02-02 17:58 | disposition hospice, home (50) | DRG 872 ==
LOC: ER 19:42 → EH 23:49 → 4N 01-30 07:00
PROVIDERS: ADMIT Internal Medicine Geriatric Medicine; ATTEND Internal Medicine Geriatric Medicine
PROC: 30233N1 Transfusion of Nonautologous Red Blood Cells into Peripheral Vein, Percutaneous Approach (ICD-10-PCS; principal; 2018-01-30)
PROC: 3E0F73Z Introduction of Anti-inflammatory into Respiratory Tract, Via Natural or Artificial Opening (ICD-10-PCS; 2018-01-30)
DX: A41.9 Sepsis, unspecified organism (principal); N39.0 Urinary tract infection, site not specified; M31.31 Wegener's granulomatosis with renal involvement; I13.0 Hypertensive heart and chronic kidney disease with heart failure and stage 1 through stage 4 chronic kidney disease, or unspecified chronic kidney disease; N18.4 Chronic kidney disease, stage 4 (severe); N17.9 Acute kidney failure, unspecified; D61.818 Other pancytopenia; I50.9 Heart failure, unspecified; E86.0 Dehydration; M19.90 Unspecified osteoarthritis, unspecified site; E03.9 Hypothyroidism, unspecified; K21.9 Gastro-esophageal reflux disease without esophagitis; Z96.641 Presence of right artificial hip joint; E78.5 Hyperlipidemia, unspecified; D69.6 Thrombocytopenia, unspecified; D63.1 Anemia in chronic kidney disease; M54.5 Low back pain; G89.29 Other chronic pain; B96.20 Unspecified Escherichia coli [E. coli] as the cause of diseases classified elsewhere; B96.5 Pseudomonas (aeruginosa) (mallei) (pseudomallei) as the cause of diseases classified elsewhere; K57.90 Diverticulosis of intestine, part unspecified, without perforation or abscess without bleeding; M48.061 Spinal stenosis, lumbar region without neurogenic claudication; Z51.5 Encounter for palliative care; R19.7 Diarrhea, unspecified; Z92.25 Personal history of immunosuppression therapy; Z88.1 Allergy status to other antibiotic agents; Z88.6 Allergy status to analgesic agent; Z79.52 Long term (current) use of systemic steroids
CPT/HCPCS: 36415; 36430; 51701; 71045; 72148; 72170; 74176; 80048; 80053; 81001; 82607; 82803; 83010; 83605; 83615; 83735; 83880; 84100; 84443; 84484; 85025; 85027; 85379; 85384; 85610; 86850; 86900; 86901; 86920; 87040; 87086; 87088; 87186; 87493; 93005; 93010; 93306; 96361; 96374; 99285; J0692; J1885; J2270; J2405; J2543; J2550; J3490; J7030; J7512; P9016